=== PATIENT | male | born 1945 | race Caucasian/White ===

== ENCOUNTER 2016-11-22 09:12 | Emergency (ER) | payer MEDICARE, BC ==
[2006-04-25 10:24] VITALS: BP 122/41
[~2016-11-22] VITALS: Ht 152.4 cm; Wt 90.9 kg
[~2016-11-22 09:12] MED LIST: ADVIL200 MG PO; ALBUTEROL SULFAT3 M3 IH; ALBUTEROL0.83 MG/ML IH; ALBUTEROL1.25 MG/3 IH; ANTIVERT 25MG25 MG PO; ASPIRIN 32325 MG/TAB PO; BACTRIM DS 8001 TAB PO; BENADRYL25 M2 PO; BENICAR 20MG TA20 MG PO; BENICAR HCT 12.1 TAB PO; BENICAR/HCTZ; BETAMETHASONE D0.05% TP; BROVANA15 MCG/2 M IH; BUMEX 1MG TA1 MG/TA1 PO; BYSTOLIC5 MG PO; CEFTIN500 MG PO; CEPHALEXIN500 M1 PO; CERAVE FACIAL M89 ML TP; CIPRODEX; CLARITIN 1010 MG/TAB PO; CLEOCIN HCL300 MG; COLACE 100100 MG/CAP PO; CPAP; DIFLUCAN 100MG100 MG PO; DOCUSATE SODIU100 MG PO; DOXYCYCLINE 10100 MG PO; FEROSUL325 MG PO; FLAGYL500 MG PO; FLEXERIL 1010 MG/TAB PO; FLONASE NASAL S16 GM NS; FOLIC ACID 40400 MCG PO; GLUCOSAMINE; GLUCOSAMINE & C1 CA1 PO; GLUCOSAMINE PO; GLUCOSAMINE500 M1 PO; HYZAAR 50-12.1 UDTAB PO; IPRATROPIUM BROM3 M1 IH; LASIX 20MG TABL20 MG PO; LEVAQUIN 5500 MG/TA1; LEVAQUIN 5500 MG/TA1 PO; LEVAQUIN 750MG750 M1 PO; MEDROL 4MG DOSPA4 MG PO; MONODOX100 PO; MORPHINE SULFAT30 M5 PO; MULTIPLE VITAMI1 CAP PO; MULTIPLE VITAMI1 TAB PO; MVI; NERVE MED; NORCO 325 MG-51 TAB PO; PAXIL 10MG10 MG PO; PAXIL 20MG20 MG PO; PAXIL 30MG30 MG PO; PEPCID 20MG TAB20 MG PO; PERCOCET 325 MG1 TA2 PO; PREDNISONE1 MG PO; PREDNISONE10 MG PO; PREDNISONE20 MG PO; PRILOSEC; PRILOSEC 20MG20 MG PO; PRILOTC PO; PROAIR HFA0.09 MG/AC IH; PULMICORT R1 MG/2 ML IH; PULMICORT90 MCG/Act IH; RT ADVAIR 228 DISKUS IH; RT SPIRIVA18 MCG IH; SARNA 0.5%-0.5222 ML TP; TESSALON PERLE200 MG PO; THERAGRAN1 TA1 PO; TOPROL XL 25MG25 MG PO; TRIAMCINOLONE A15 GM TP; TYLENOL 325MG325 MG PO; TYLENOL 650MG650 M2 PO; ULTRAM 50MG TAB50 MG PO; ULTRAM50 MG PO; VITAMIN C500 MG PO; ZANTAC 300300 MG PO; ZITHROMAX 250M250 MG PO; ZITHROMAX Z PA250 MG PO; ZYRTEC 10MG10 MG PO; [UNRECOGNIZED DRUG - REMARK]
[2016-11-22 09:18] VITALS: TEMP 96.9
[2016-11-22 09:58] LABS: ARTERIAL BLD GAS O2 SATURATION 96.8 % (92-100); ARTERIAL BLD GAS TCO2 CT 26.9; ARTERIAL BLOOD GAS BASE EXCESS 1.1 (-2-2); ARTERIAL BLOOD GAS HCO3 25.7 meq/L (22-26); ARTERIAL BLOOD GAS PHT 7.42 C (7.35-7.45); ARTERIAL BLOOD GAS PO2 90.2 mmHg (80-100); ARTERIAL BLOOD GAS PO2T 90.2 (80-100); ARTERIAL BLOOD GAS pH 7.42 (7.35-7.45); OXYHEMOGLOBIN 96.4 %
[2016-11-22 09:59] LABS: ALLEN TEST YES; ALLENS TEST RESULT PASS; ATS? YES
[2016-11-22 10:29] LABS: HEMATOCRIT 39.4 % (42.0-52.0); MEAN CELL VOLUME 97 fl (80.0-100.0); MEAN CORPUSCULAR HEMOGLOBIN 32 pg (27.0-31.0); MEAN CORPUSCULAR HGB CONC 33 g/dl (33.0-37.0); PLATELET COUNT 336 K/mm3 (130-400); RED BLOOD COUNT 4.06 M/mm3 (4.20-5.60); REDCELL DISTRIBUTION WIDTH-CV 13.4 % (11.5-14.5)
[2016-11-22 10:39] LABS: ADJUSTED CALCIUM 9.5 mg/dL (8.4-10.2); ALBUMIN 3.1 gm/dL (3.5-5.0); BILIRUBIN,TOTAL 0.6 mg/dL (0.0-1.0); CALCIUM 8.8 mg/dL (8.4-10.2); CREATININE, serum 1.29 mg/dL (0.66-1.25); POTASSIUM 3.7 mmol/L (3.4-5.0); TOTAL PROTEIN 5.7 gm/dL (6.4-8.2)
[2016-11-22 10:44] LABS: ADD PATHOLOGY DIFF REVIEW NO; WHITE BLOOD COUNT 19.9 K/mm3 (4.8-10.8)
[2016-11-22 10:50] LABS: METAMYELOCYTE 1 % (0-0); MYELOCYTE 2 % (0-0); NEUTROPHILS 75 % (42.0-75.2); PLATELET ESTIMATE NORMAL (NORMAL); TOTAL CELLS COUNTED 100
[2016-11-22] MEDS ORDERED: BACTRIM DS 8001 TAB PO (12:52)
[2016-11-22 13:28] VITALS: BP 146/86; PULSE 97
== END 2016-11-22 13:36 | disposition home or self-care (01) ==
LOC: COL.ER 09:12
PROVIDERS: Family Medicine
DX: J44.0 Chronic obstructive pulmonary disease with (acute) lower respiratory infection (principal); J20.9 Acute bronchitis, unspecified; I10 Essential (primary) hypertension; K21.9 Gastro-esophageal reflux disease without esophagitis
CPT/HCPCS: J2930

== ENCOUNTER 2016-11-22 17:27 | Emergency (ER) | payer MEDICARE, BC ==
[2006-04-25 10:24] VITALS: BP 122/41
[~2016-11-22] VITALS: Ht 152.4 cm; Wt 90.9 kg
[2016-11-22 17:27] VITALS: TEMP 98.4
[2016-11-22 19:36] VITALS: BP 134/78; PULSE 94
== END 2016-11-22 19:30 | disposition home or self-care (01) ==
LOC: COL.ER 17:27
DX: S09.90XA Unspecified injury of head, initial encounter (principal); S01.21XA Laceration without foreign body of nose, initial encounter; W01.198A Fall on same level from slipping, tripping and stumbling with subsequent striking against other object, initial encounter; Y92.009 Unspecified place in unspecified non-institutional (private) residence as the place of occurrence of the external cause; I12.9 Hypertensive chronic kidney disease with stage 1 through stage 4 chronic kidney disease, or unspecified chronic kidney disease; N18.9 Chronic kidney disease, unspecified; Z87.891 Personal history of nicotine dependence; J44.0 Chronic obstructive pulmonary disease with (acute) lower respiratory infection; J20.9 Acute bronchitis, unspecified; Z99.81 Dependence on supplemental oxygen

== ENCOUNTER 2016-11-23 09:04 | Day surgery (SDC) | payer MEDICARE, BC ==
[2006-04-25 10:24] VITALS: BP 122/41
[~2016-11-23] VITALS: Ht 152.4 cm; Wt 90.5 kg
[2016-11-23 09:59] VITALS: BP 144/77; PULSE 93; TEMP 97.4
[2016-11-23 12:10] VITALS: BP 128/75; PULSE 88; TEMP 98
[2016-11-23 12:25] VITALS: BP 112/69; PULSE 91
[2016-11-23 12:40] VITALS: BP 123/62; PULSE 88
[2016-11-23 14:31] VITALS: BP 130/76; PULSE 89
== END 2016-11-23 13:20 | disposition home or self-care (01) ==
LOC: SDCO 09:04
DX: R04.2 Hemoptysis (principal); R06.02 Shortness of breath; I10 Essential (primary) hypertension; Z87.01 Personal history of pneumonia (recurrent); Z86.14 Personal history of Methicillin resistant Staphylococcus aureus infection; G47.33 Obstructive sleep apnea (adult) (pediatric); Z87.891 Personal history of nicotine dependence
CPT/HCPCS: J2704; J7030

== ENCOUNTER 2016-12-21 22:39 | Emergency (ER) | payer MEDICARE, BC ==
[2006-04-25 10:24] VITALS: BP 122/41
[~2016-12-21] VITALS: Ht 152.4 cm; Wt 90.9 kg
[2016-12-21 22:50] VITALS: TEMP 97.1
[2016-12-21 23:06] LABS: HEMATOCRIT 38.8 % (42.0-52.0); HEMOGLOBIN 12.6 g/dl (13.5-18.0); MEAN CELL VOLUME 99 fl (80.0-100.0); MEAN CORPUSCULAR HEMOGLOBIN 32 pg (27.0-31.0); MEAN CORPUSCULAR HGB CONC 33 g/dl (33.0-37.0); MEAN PLATELET VOLUME 8.9 fl (7.4-10.4); PLATELET COUNT 339 K/mm3 (130-400); RED BLOOD COUNT 3.92 M/mm3 (4.20-5.60); REDCELL DISTRIBUTION WIDTH-CV 13.8 % (11.5-14.5); WHITE BLOOD COUNT 15.9 K/mm3 (4.8-10.8)
[2016-12-21 23:09] LABS: ADD PATHOLOGY DIFF REVIEW NO
[2016-12-21 23:20] LABS: ADJUSTED CALCIUM 9.3 mg/dL (8.4-10.2); ALBUMIN 3.7 gm/dL (3.5-5.0); BILIRUBIN,TOTAL 0.6 mg/dL (0.0-1.0); CALCIUM 9.1 mg/dL (8.4-10.2); CREATININE, serum 1.31 mg/dL (0.66-1.25); POTASSIUM 4.2 mmol/L (3.4-5.0); TOTAL PROTEIN 6.6 gm/dL (6.4-8.2)
[2016-12-21 23:27] LABS: BAND 2 % (0-10); EOSINOPHIL 3 % (0-4); NEUTROPHILS 80 % (42.0-75.2); PLATELET ESTIMATE NORMAL (NORMAL); TOTAL CELLS COUNTED 100
[2016-12-21] MEDS ORDERED: ZITHROMAX Z PA250 MG PO (23:29)
[2016-12-21] MEDS ORDERED: PREDNISONE20 MG PO (23:29)
[2016-12-22 00:31] VITALS: BP 150/70; PULSE 88
== END 2016-12-22 00:32 | disposition home or self-care (01) ==
LOC: COL.ER 22:39
PROVIDERS: Family Medicine
DX: J44.1 Chronic obstructive pulmonary disease with (acute) exacerbation (principal); Z87.891 Personal history of nicotine dependence
CPT/HCPCS: J2930

== ENCOUNTER → 2017-04-05 | Outpatient (CLI) | payer MEDICARE, BC ==
[~2017-04-05] MED LIST changes: +PRILOTC
== END ==
LOC: COL.VAS 11:09
DX: R06.02 Shortness of breath (principal); R07.9 Chest pain, unspecified

== ENCOUNTER → 2017-04-28 | Outpatient (CLI) | payer MEDICARE, BC, OTHER | LOC: COL.PUL 07:46 | DX: R06.02 Shortness of breath (principal) ==

== ENCOUNTER 2017-05-07 20:32 | Observation (INO) | payer MEDICARE, BC ==
[~2017-05-07] VITALS: Ht 152.4 cm; Wt 90.4 kg
[~2017-05-07 20:32] MED LIST changes: -PRILOTC
[2017-05-07 21:04] LABS: BASO # 0.1 (0.0-0.2); BASO % 0.6 % (0.0-2.0); EOS # 0.5 (0.0-0.7); EOS % 2.9 % (0-4.0); GRAN # 12.2 (1.4-6.5); GRAN % 76.1 % (42.2-75.2); HEMATOCRIT 39.4 % (42.0-52.0); HEMOGLOBIN 13.1 g/dl (13.5-18.0); LYMPH # 1.9 (1.2-3.4); LYMPH % 11.9 % (20.0-51.0); MEAN CELL VOLUME 94 fl (80.0-100.0); MEAN CORPUSCULAR HEMOGLOBIN 31 pg (27.0-31.0); MEAN CORPUSCULAR HGB CONC 33 g/dl (33.0-37.0); MEAN PLATELET VOLUME 9.3 fl (7.4-10.4); MONO # 1.3 (0.1-0.6); MONO % 7.8 % (1.7-9.3); PLATELET COUNT 240 K/mm3 (130-400); RED BLOOD COUNT 4.18 M/mm3 (4.20-5.60); REDCELL DISTRIBUTION WIDTH-CV 13.3 % (11.5-14.5); WHITE BLOOD COUNT 16.1 K/mm3 (4.8-10.8)
[2017-05-07 21:16] LABS: ALANINE AMINOTRANSFERASE 22 U/L (21-72); ALBUMIN 3.4 gm/dL (3.5-5.0); ALKALINE PHOSPHATASE 82 U/L (50-136); ANION GAP 12 mmol/L (7-16); BILIRUBIN,TOTAL 0.5 mg/dL (0.0-1.0); BLOOD UREA NITROGEN 28 mg/dL (9-20); CALCIUM 8.5 mg/dL (8.4-10.2); CARBON DIOXIDE 28 mmol/L (22-30); CHLORIDE 101 mmol/L (98-107); CREATININE, serum 1.44 mg/dL (0.66-1.25); GLUCOSE 133 mg/dL (74-106); LIPASE 39 U/L (23-300); POTASSIUM 3.7 mmol/L (3.4-5.0); SODIUM 141 mmol/L (137-145); TOTAL PROTEIN 6.1 gm/dL (6.4-8.2)
[2017-05-07 21:28] LABS: B-TYPE NATRIURETIC PEPTIDE 127 pg/mL (0-125)
[2017-05-07 21:29] LABS: TROPONIN-I < 0.012 ng/mL (0.000-0.034)
[2017-05-08] VITALS (7 sets, daily range): BP systolic 105–136; BP diastolic 41–71; PULSE 75–96; TEMP 97.5–98.1
[2017-05-08] MEDS ORDERED: PRILOTC (00:52)
[2017-05-08 01:57] LABS: PH 5 (5-8); SQUAMOUS EPITHELIAL 0-2 /hpf; URINE APPEARANCE Clear; URINE BACTERIA None Seen /hpf; URINE BILIRUBIN Negative (NEGATIVE); URINE BLOOD Negative (NEGATIVE); URINE COLOR Yellow; URINE GLUCOSE Negative (NEGATIVE); URINE KETONE Negative (NEGATIVE); URINE RBC 0-2 /hpf; URINE UROBILINOGEN Negative (NEGATIVE); URINE WBC 0-2 /hpf
[2017-05-08 11:17] LABS: BASO # 0.1 (0.0-0.2); BASO % 0.5 % (0.0-2.0); EOS # 0.5 (0.0-0.7); EOS % 2.7 % (0-4.0); GRAN # 13.3 (1.4-6.5); GRAN % 78.6 % (42.2-75.2); HEMATOCRIT 43.5 % (42.0-52.0); HEMOGLOBIN 14.1 g/dl (13.5-18.0); LYMPH # 1.7 (1.2-3.4); LYMPH % 9.9 % (20.0-51.0); MEAN CELL VOLUME 95 fl (80.0-100.0); MEAN CORPUSCULAR HEMOGLOBIN 31 pg (27.0-31.0); MEAN CORPUSCULAR HGB CONC 32 g/dl (33.0-37.0); MEAN PLATELET VOLUME 9.4 fl (7.4-10.4); MONO # 1.3 (0.1-0.6); MONO % 7.4 % (1.7-9.3); PLATELET COUNT 221 K/mm3 (130-400); REDCELL DISTRIBUTION WIDTH-CV 13.4 % (11.5-14.5); WHITE BLOOD COUNT 16.9 K/mm3 (4.8-10.8)
== END 2017-05-08 14:39 ==
LOC: COL.ER 20:32 → MEDICAL 23:39
PROVIDERS: Emergency Medicine; Internal Medicine; Physician Assistant
DX: R07.89 Other chest pain (principal); I13.10 Hypertensive heart and chronic kidney disease without heart failure, with stage 1 through stage 4 chronic kidney disease, or unspecified chronic kidney disease; N18.2 Chronic kidney disease, stage 2 (mild); N17.9 Acute kidney failure, unspecified; I11.9 Hypertensive heart disease without heart failure; J96.10 Chronic respiratory failure, unspecified whether with hypoxia or hypercapnia; J44.9 Chronic obstructive pulmonary disease, unspecified; D72.829 Elevated white blood cell count, unspecified; Z87.891 Personal history of nicotine dependence; G47.33 Obstructive sleep apnea (adult) (pediatric); E66.9 Obesity, unspecified
CPT/HCPCS: A9502; G0378; J1644; J2785; J7030; Q9967

== ENCOUNTER → 2017-05-16 | Outpatient (CLI) | payer MEDICARE, BC ==
[~2017-05-16] MED LIST changes: +PRILOTC
[2017-05-16 12:17] LABS: BASO # 0.1 (0.0-0.2); BASO % 0.6 % (0.0-2.0); EOS # 0.8 (0.0-0.7); EOS % 4.4 % (0-4.0); GRAN # 13.1 (1.4-6.5); GRAN % 75.8 % (42.2-75.2); HEMATOCRIT 40.3 % (42.0-52.0); HEMOGLOBIN 13.2 g/dl (13.5-18.0); LYMPH # 1.9 (1.2-3.4); LYMPH % 10.9 % (20.0-51.0); MEAN CELL VOLUME 94 fl (80.0-100.0); MEAN CORPUSCULAR HEMOGLOBIN 31 pg (27.0-31.0); MEAN CORPUSCULAR HGB CONC 33 g/dl (33.0-37.0); MEAN PLATELET VOLUME 9.5 fl (7.4-10.4); MONO # 1.3 (0.1-0.6); MONO % 7.2 % (1.7-9.3); PLATELET COUNT 304 K/mm3 (130-400); RED BLOOD COUNT 4.29 M/mm3 (4.20-5.60); REDCELL DISTRIBUTION WIDTH-CV 13.1 % (11.5-14.5); WHITE BLOOD COUNT 17.3 K/mm3 (4.8-10.8)
== END ==
LOC: ZLAB.STJ 11:23
PROVIDERS: Family Medicine
DX: J44.1 Chronic obstructive pulmonary disease with (acute) exacerbation (principal)

== ENCOUNTER → 2017-11-06 | Outpatient (CLI) | payer MEDICARE, BC | LOC: ZLAB.STJ 14:18 | DX: Z51.81 Encounter for therapeutic drug level monitoring (principal) ==

== ENCOUNTER → 2017-11-15 | Outpatient (REF) ==
[~2017-11-15] MED LIST changes: +AMOXICILLIN/CLA1 TA1 PO
[2017-11-15 10:22] LABS: ADJUSTED CALCIUM 9.7 mg/dL (8.4-10.2); ALBUMIN 3.3 gm/dL (3.5-5.0); BILIRUBIN,TOTAL 0.2 mg/dL (0.0-1.0); CALCIUM 9.1 mg/dL (8.4-10.2); CREATININE, serum 1.2 mg/dL (0.66-1.25); POTASSIUM 4.7 mmol/L (3.4-5.0); TOTAL PROTEIN 5.9 gm/dL (6.4-8.2)
== END ==
LOC: ZLAB.STJ 10:00
PROVIDERS: Family Medicine
DX: J44.9 Chronic obstructive pulmonary disease, unspecified (principal)

== ENCOUNTER → 2018-01-04 | Outpatient (CLI) | payer MEDICARE, BC ==
[2018-01-04 11:09] LABS: BASO # 0.1 (0.0-0.2); BASO % 0.4 % (0.0-2.0); EOS # 0.2 (0.0-0.7); EOS % 0.7 % (0-4.0); GRAN # 17.9 (1.4-6.5); GRAN % 82.9 % (42.2-75.2); HEMATOCRIT 38.8 % (42.0-52.0); HEMOGLOBIN 13.2 g/dl (13.5-18.0); LYMPH # 1.9 (1.2-3.4); LYMPH % 8.7 % (20.0-51.0); MEAN CELL VOLUME 95 fl (80.0-100.0); MEAN CORPUSCULAR HEMOGLOBIN 32 pg (27.0-31.0); MEAN CORPUSCULAR HGB CONC 34 g/dl (33.0-37.0); MEAN PLATELET VOLUME 9.7 fl (7.4-10.4); MONO # 1.4 (0.1-0.6); MONO % 6.7 % (1.7-9.3); PLATELET COUNT 340 K/mm3 (130-400); RED BLOOD COUNT 4.08 M/mm3 (4.20-5.60); REDCELL DISTRIBUTION WIDTH-CV 13.2 % (11.5-14.5)
== END ==
LOC: ZCOL.LAB 10:55
PROVIDERS: Family Medicine
DX: Z01.89 Encounter for other specified special examinations (principal)

== ENCOUNTER → 2018-01-09 | Outpatient (CLI) | payer MEDICARE, BC ==
[2018-01-09 15:43] LABS: BASO # 0.1 (0.0-0.2); BASO % 0.4 % (0.0-2.0); EOS % 0.1 % (0-4.0); GRAN # 22.3 (1.4-6.5); GRAN % 92.2 % (42.2-75.2); HEMATOCRIT 41.7 % (42.0-52.0); HEMOGLOBIN 14.2 g/dl (13.5-18.0); LYMPH # 0.8 (1.2-3.4); LYMPH % 3.5 % (20.0-51.0); MEAN CELL VOLUME 94 fl (80.0-100.0); MEAN CORPUSCULAR HEMOGLOBIN 32 pg (27.0-31.0); MEAN CORPUSCULAR HGB CONC 34 g/dl (33.0-37.0); MEAN PLATELET VOLUME 9.3 fl (7.4-10.4); MONO # 0.7 (0.1-0.6); MONO % 3.1 % (1.7-9.3); PLATELET COUNT 393 K/mm3 (130-400); RED BLOOD COUNT 4.43 M/mm3 (4.20-5.60); REDCELL DISTRIBUTION WIDTH-CV 13.2 % (11.5-14.5)
[2018-01-09 16:22] LABS: BILIRUBIN,TOTAL 0.2 mg/dL (0.0-1.0); CALCIUM 9.3 mg/dL (8.4-10.2); CREATININE, serum 1.66 mg/dL (0.66-1.25); POTASSIUM 3.1 mmol/L (3.4-5.0); TOTAL PROTEIN 6.9 gm/dL (6.4-8.2)
== END ==
LOC: ZLAB.STJ 15:35
PROVIDERS: Family Medicine
DX: J96.11 Chronic respiratory failure with hypoxia (principal); R53.81 Other malaise

== ENCOUNTER 2018-01-15 15:01 | Emergency (ER) | payer MEDICARE, BC ==
[2006-04-25 10:24] VITALS: BP 122/41
[~2018-01-15] VITALS: Ht 157.5 cm; Wt 86.4 kg
[2018-01-15 15:03] VITALS: TEMP 97.8
[2018-01-15 15:59] LABS: BASO % 0.1 % (0.0-2.0); GRAN # 19.5 (1.4-6.5); GRAN % 88.6 % (42.2-75.2); HEMATOCRIT 46.4 % (42.0-52.0); HEMOGLOBIN 16.1 g/dl (13.5-18.0); LYMPH # 1.7 (1.2-3.4); LYMPH % 7.5 % (20.0-51.0); MEAN CELL VOLUME 92 fl (80.0-100.0); MEAN CORPUSCULAR HEMOGLOBIN 32 pg (27.0-31.0); MEAN CORPUSCULAR HGB CONC 35 g/dl (33.0-37.0); MEAN PLATELET VOLUME 9.1 fl (7.4-10.4); MONO # 0.7 (0.1-0.6); MONO % 3.3 % (1.7-9.3); PLATELET COUNT 352 K/mm3 (130-400); RED BLOOD COUNT 5.03 M/mm3 (4.20-5.60); REDCELL DISTRIBUTION WIDTH-CV 13.3 % (11.5-14.5)
[2018-01-15 16:07] LABS: ALANINE AMINOTRANSFERASE 42 U/L (21-72); ALBUMIN 3.8 gm/dL (3.5-5.0); ALKALINE PHOSPHATASE 92 U/L (50-136); ANION GAP 10 mmol/L (7-16); AST,SGOT 35 U/L (15-37); BILIRUBIN,TOTAL 0.5 mg/dL (0.0-1.0); BLOOD UREA NITROGEN 61 mg/dL (9-20); CALCIUM 9.3 mg/dL (8.4-10.2); CARBON DIOXIDE 35 mmol/L (22-30); CREATININE, serum 1.58 mg/dL (0.66-1.25); GLUCOSE 158 mg/dL (74-106); SODIUM 130 mmol/L (137-145); TOTAL PROTEIN 6.5 gm/dL (6.4-8.2)
[2018-01-15 16:09] LABS: CHLORIDE 85 mmol/L (98-107); POTASSIUM 2.8 mmol/L (3.4-5.0)
[2018-01-15 16:30] LABS: TROPONIN-I < 0.012 ng/mL (0.000-0.034)
[2018-01-15 17:13] VITALS: BP 127/78; PULSE 105
[2018-01-15] MEDS ORDERED: CLARITIN LIQUI-10 MG PO (17:16)
[2018-01-15] MEDS ORDERED: THEO-DUR 3300 MG/TAB PO (17:17)
[2018-01-15] MEDS ORDERED: ULTRAM 50MG TAB50 MG PO (17:17)
[2018-01-15] MEDS ORDERED: RT ADVAIR HFA 1112 G IH (17:18)
[2018-01-15] MEDS ORDERED: BUMEX 1MG TA1 MG/TA1 PO (17:18)
[2018-01-15] MEDS ORDERED: THERA1 TAB PO (17:19)
[2018-01-15] MEDS ORDERED: MYCOSTATIN100000 U/1 TP (17:21)
[2018-01-15] MEDS ORDERED: ASPIRIN 81M81 MG/TA2 PO (17:22)
[2018-01-15] MEDS ORDERED: HCTZ 25MG TAB25 MG PO (17:23)
[2018-01-15] MEDS ORDERED: PREDNISONE10 MG PO (17:24)
[2018-01-15] MEDS ORDERED: K-DUR 10 MEQ T10 MEQ PO (17:25)
== END 2018-01-15 17:14 | disposition home or self-care (01) ==
LOC: COL.ER 15:01
PROVIDERS: Emergency Medicine
DX: J44.9 Chronic obstructive pulmonary disease, unspecified (principal); E87.6 Hypokalemia; I12.9 Hypertensive chronic kidney disease with stage 1 through stage 4 chronic kidney disease, or unspecified chronic kidney disease; N18.9 Chronic kidney disease, unspecified; K21.9 Gastro-esophageal reflux disease without esophagitis; Z90.49 Acquired absence of other specified parts of digestive tract; Z98.890 Other specified postprocedural states; Z87.891 Personal history of nicotine dependence

== ENCOUNTER → 2018-01-23 | Outpatient (REF) ==
[~2018-01-23] MED LIST changes: +ASPIRIN 81M81 MG/TA2 PO; +CLARITIN LIQUI-10 MG PO; +HCTZ 25MG TAB25 MG PO; +K-DUR 10 MEQ T10 MEQ PO; +MYCOSTATIN100000 U/1 TP; +RT ADVAIR HFA 1112 G IH; +THEO-DUR 3300 MG/TAB PO; +THERA1 TAB PO
[2018-01-23 09:15] LABS: CALCIUM 8.7 mg/dL (8.4-10.2); CREATININE, serum 1.33 mg/dL (0.66-1.25)
[2018-01-23 09:22] LABS: POTASSIUM 2.5 mmol/L (3.4-5.0)
== END ==
LOC: ZLAB.STJ 08:59
PROVIDERS: Family Medicine
DX: N18.2 Chronic kidney disease, stage 2 (mild) (principal)

== ENCOUNTER → 2018-01-26 | Outpatient (REF) ==
[2018-01-26 15:45] LABS: CALCIUM 8.8 mg/dL (8.4-10.2); CREATININE, serum 1.3 mg/dL (0.66-1.25); POTASSIUM 3.2 mmol/L (3.4-5.0)
== END ==
LOC: ZLAB.STJ 14:12
PROVIDERS: Family Medicine
DX: N18.2 Chronic kidney disease, stage 2 (mild) (principal)

== ENCOUNTER → 2018-01-26 | Outpatient (REF) | LOC: ZLAB.STJ 09:33 | DX: Z01.89 Encounter for other specified special examinations (principal) ==

== ENCOUNTER → 2018-02-16 | Outpatient (CLI) | payer MEDICARE, BC | LOC: COL.RAD 10:31 | DX: R05 Cough (principal) ==

== ENCOUNTER 2018-06-20 22:34 | Observation (INO) | payer MEDICARE, BC ==
[~2018-06-20] VITALS: Ht 152.4 cm; Wt 90.9 kg
[2018-06-20 23:07] LABS: BASO # 0.1 (0.0-0.2); BASO % 0.4 % (0.0-2.0); EOS # 0.1 (0.0-0.7); EOS % 0.6 % (0-4.0); GRAN # 15.8 (1.4-6.5); GRAN % 79.9 % (42.2-75.2); HEMATOCRIT 39.6 % (42.0-52.0); LYMPH # 2.3 (1.2-3.4); LYMPH % 11.4 % (20.0-51.0); MEAN CELL VOLUME 91 fl (80.0-100.0); MEAN CORPUSCULAR HEMOGLOBIN 30 pg (27.0-31.0); MEAN CORPUSCULAR HGB CONC 33 g/dl (33.0-37.0); MEAN PLATELET VOLUME 9.2 fl (7.4-10.4); MONO # 1.4 (0.1-0.6); PLATELET COUNT 252 K/mm3 (130-400); RED BLOOD COUNT 4.37 M/mm3 (4.20-5.60); REDCELL DISTRIBUTION WIDTH-CV 14.1 % (11.5-14.5)
[2018-06-20 23:12] LABS: ARTERIAL BLD GAS O2 SATURATION 95.2 % (92-100); ARTERIAL BLD GAS TCO2 CT 27.6; ARTERIAL BLOOD GAS BASE EXCESS 3.2 (-2-2); ARTERIAL BLOOD GAS HCO3 26.5 meq/L (22-26); ARTERIAL BLOOD GAS PCO2 36.1 mmHg (35-45); ARTERIAL BLOOD GAS PO2 78.9 mmHg (80-100); ARTERIAL BLOOD GAS pH 7.48 (7.35-7.45)
[2018-06-20 23:18] LABS: ALANINE AMINOTRANSFERASE 25 U/L (21-72); ALBUMIN 3.4 gm/dL (3.5-5.0); ALKALINE PHOSPHATASE 74 U/L (50-136); ANION GAP 10 mmol/L (7-16); AST,SGOT 20 U/L (15-37); BILIRUBIN,TOTAL 0.1 mg/dL (0.0-1.0); BLOOD UREA NITROGEN 23 mg/dL (9-20); CALCIUM 8.7 mg/dL (8.4-10.2); CARBON DIOXIDE 30 mmol/L (22-30); CHLORIDE 100 mmol/L (98-107); CREATININE, serum 1.44 mg/dL (0.66-1.25); GLUCOSE 120 mg/dL (74-106); POTASSIUM 3.9 mmol/L (3.4-5.0); SODIUM 140 mmol/L (137-145); TOTAL PROTEIN 6.1 gm/dL (6.4-8.2)
[2018-06-20 23:22] LABS: INR 1.1 (0.8-3.0); PROTHROMBIN TIME 12.3 SECONDS (9.7-12.8)
[2018-06-20 23:24] LABS: PARTIAL THROMBOPLASTIN TIME 33.4 SECONDS (26.0-37.0)
[2018-06-20 23:29] LABS: TROPONIN-I < 0.012 ng/mL (0.000-0.034)
[2018-06-20] MEDS ORDERED: RT ADVAIR HFA 1112 G IH (23:45)
[2018-06-20] MEDS ORDERED: GLUCOSAMIN 500 (23:46)
[2018-06-21 02:11] LABS: COLLECTION METHOD CLEAN CATCH
[2018-06-21 02:19] VITALS: BP 121/61; PULSE 97; TEMP 98.3
[2018-06-21 02:19] LABS: MUCOUS Present /lpf; PH 5 (5-8); SQUAMOUS EPITHELIAL None Seen /hpf; URINE APPEARANCE Clear; URINE BACTERIA None Seen /hpf; URINE BILIRUBIN Negative (NEGATIVE); URINE BLOOD Negative (NEGATIVE); URINE COLOR Yellow; URINE GLUCOSE Negative (NEGATIVE); URINE KETONE Negative (NEGATIVE); URINE LEUKOCYTE ESTERASE Negative (NEGATIVE); URINE NITRATE Negative (NEGATIVE); URINE PROTEIN(semi-quant) Negative (NEGATIVE); URINE RBC 0-2 /hpf; URINE UROBILINOGEN Negative (NEGATIVE)
[2018-06-21 04:09] VITALS: BP 122/73; PULSE 110; TEMP 98.2
[2018-06-21] MEDS ORDERED: TYLENOL 500MG500 MG PO (04:45)
[2018-06-21] MEDS ORDERED: COLACE 100100 MG/CAP PO ×2 (04:47→04:48)
[2018-06-21] MEDS ORDERED: [UNRECOGNIZED DRUG - OTHER] NAS (04:52)
[2018-06-21 07:34] VITALS: BP 136/65; PULSE 99; TEMP 98.4
[2018-06-21] MEDS ORDERED: ZITHROMAX500 M2 PO (09:09)
[2018-06-21 09:43] VITALS: BP 136/65; PULSE 99; TEMP 98.4
== END 2018-06-21 12:37 | disposition home or self-care (01) ==
LOC: COL.ER 22:34 → ICU 06-21 00:47 → MEDICAL 06-21 01:27
PROVIDERS: Emergency Medicine
DX: J44.1 Chronic obstructive pulmonary disease with (acute) exacerbation (principal); K21.9 Gastro-esophageal reflux disease without esophagitis; I10 Essential (primary) hypertension; N18.9 Chronic kidney disease, unspecified; D72.829 Elevated white blood cell count, unspecified; R00.0 Tachycardia, unspecified; Z99.81 Dependence on supplemental oxygen
CPT/HCPCS: G0378; J2930; Q9967

== ENCOUNTER → 2018-09-19 | Outpatient (CLI) | payer MEDICARE, BC ==
[~2018-09-19] MED LIST changes: +GLUCOSAMIN 500; +TYLENOL 500MG500 MG PO; +ZITHROMAX500 M2 PO; +[UNRECOGNIZED DRUG - OTHER] NAS
[2018-09-19 15:31] LABS: CALCIUM 8.5 mg/dL (8.4-10.2); CREATININE, serum 1.33 mg/dL (0.66-1.25); POTASSIUM 4.3 mmol/L (3.4-5.0); THEOPHYLLINE 9.8 ug/mL (10.0-20.0)
== END ==
LOC: ZLAB.STJ 15:07
PROVIDERS: Family Medicine
DX: J44.9 Chronic obstructive pulmonary disease, unspecified (principal)

== ENCOUNTER → 2018-11-06 | Outpatient (CLI) | payer MEDICARE, BC ==
[2018-11-06 16:51] LABS: CALCIUM 8.8 mg/dL (8.4-10.2); CREATININE, serum 1.39 mg/dL (0.66-1.25); POTASSIUM 4.8 mmol/L (3.4-5.0)
[2018-11-06 18:48] LABS: THEOPHYLLINE 8.1 ug/mL (10.0-20.0)
== END ==
LOC: ZLAB.STJ 16:28 → ZCOL.LAB 16:28
PROVIDERS: Family Medicine
DX: I10 Essential (primary) hypertension (principal); J96.11 Chronic respiratory failure with hypoxia

== ENCOUNTER → 2019-02-26 | Outpatient (CLI) | payer MEDICARE, BC | LOC: ZCOL.LAB 19:19 → ZLAB.STJ 19:19 | DX: E61.2 Magnesium deficiency (principal) ==

== ENCOUNTER → 2019-03-06 | Outpatient (CLI) | payer MEDICARE, BC ==
[2019-03-06 13:31] LABS: COLLECTION METHOD CLEAN CATCH
[2019-03-06 13:44] LABS: BASO # 0.1 (0.0-0.2); BASO % 0.4 % (0.0-2.0); EOS # 0.3 (0.0-0.7); GRAN # 11.4 (1.4-6.5); GRAN % 80.1 % (42.2-75.2); HEMATOCRIT 41.5 % (42.0-52.0); HEMOGLOBIN 13.3 g/dl (13.5-18.0); LYMPH # 1.4 (1.2-3.4); LYMPH % 9.5 % (20.0-51.0); MEAN CELL VOLUME 94 fl (80.0-100.0); MEAN CORPUSCULAR HEMOGLOBIN 30 pg (27.0-31.0); MEAN CORPUSCULAR HGB CONC 32 g/dl (33.0-37.0); MEAN PLATELET VOLUME 9.8 fl (7.4-10.4); MONO # 1.1 (0.1-0.6); MONO % 7.4 % (1.7-9.3); PLATELET COUNT 253 K/mm3 (130-400); RED BLOOD COUNT 4.43 M/mm3 (4.20-5.60); REDCELL DISTRIBUTION WIDTH-CV 13.2 % (11.5-14.5)
[2019-03-06 13:59] LABS: ALANINE AMINOTRANSFERASE < 6 U/L (21-72); ALBUMIN 3.5 gm/dL (3.5-5.0); ALKALINE PHOSPHATASE 86 U/L (50-136); ANION GAP 9 mmol/L (7-16); AST,SGOT 46 U/L (15-37); BILIRUBIN,TOTAL 0.6 mg/dL (0.0-1.0); BLOOD UREA NITROGEN 27 mg/dL (9-20); CALCIUM 8.9 mg/dL (8.4-10.2); CARBON DIOXIDE 26 mmol/L (22-30); CHLORIDE 104 mmol/L (98-107); CHOLESTEROL 158 mg/dL (120-200); CHOLESTEROL RISK RATIO 3.5; CREATININE, serum 1.39 (0.66-1.25); GLUCOSE 96 mg/dL (74-106); HDL CHOLESTEROL 45 mg/dL; LDL CHOLESTEROL 96 mg/dL; POTASSIUM 4.6 mmol/L (3.4-5.0); SODIUM 138 mmol/L (137-145); TOTAL PROTEIN 6.3 gm/dL (6.4-8.2); TRIGLYCERIDE 84 mg/dL
[2019-03-06 14:05] LABS: MUCOUS Present /lpf; PH 5 (5-8); SQUAMOUS EPITHELIAL None Seen /hpf; URINE APPEARANCE Clear; URINE BACTERIA None Seen /hpf; URINE BILIRUBIN Negative (NEGATIVE); URINE BLOOD Negative (NEGATIVE); URINE COLOR Yellow; URINE GLUCOSE Negative (NEGATIVE); URINE KETONE Negative (NEGATIVE); URINE LEUKOCYTE ESTERASE Negative (NEGATIVE); URINE NITRATE Negative (NEGATIVE); URINE PROTEIN(semi-quant) Negative (NEGATIVE); URINE RBC 0-2 /hpf; URINE UROBILINOGEN Negative (NEGATIVE)
== END ==
LOC: ZLAB.STJ 09:41
PROVIDERS: Family Medicine
DX: Z01.89 Encounter for other specified special examinations (principal)

== ENCOUNTER 2019-05-18 16:07 | Inpatient (IN) | payer MEDICARE, BC ==
[~2019-05-18] VITALS: Ht 157.5 cm; Wt 91.5 kg
[~2019-05-18 16:07] MED LIST changes: -PRILOTC
[2019-05-18 17:26] LABS: HEMATOCRIT 42.7 % (42.0-52.0); HEMOGLOBIN 13.7 g/dl (13.5-18.0); MEAN CELL VOLUME 93 fl (80.0-100.0); MEAN CORPUSCULAR HEMOGLOBIN 30 pg (27.0-31.0); MEAN CORPUSCULAR HGB CONC 32 g/dl (33.0-37.0); MEAN PLATELET VOLUME 9.1 fl (7.4-10.4); PLATELET COUNT 263 K/mm3 (130-400); RED BLOOD COUNT 4.61 M/mm3 (4.20-5.60); REDCELL DISTRIBUTION WIDTH-CV 13.6 % (11.5-14.5)
[2019-05-18 17:36] LABS: ALBUMIN 3.8 gm/dL (3.5-5.0); BILIRUBIN,TOTAL 0.4 mg/dL (0.0-1.0); CALCIUM 9.2 mg/dL (8.4-10.2); CREATININE, serum 1.53 (0.66-1.25); POTASSIUM 3.9 mmol/L (3.4-5.0); TOTAL PROTEIN 6.7 gm/dL (6.4-8.2)
[2019-05-18 17:55] LABS: EOSINOPHIL 1 % (0-4); LYMPHOCYTE 4 % (20.0-51.0); NEUTROPHILS 84 % (42.0-75.2)
[2019-05-18 17:56] LABS: PLATELET ESTIMATE NORMAL (NORMAL)
[2019-05-18 20:01] VITALS: BP 93/60; PULSE 116; TEMP 98.1
--- NOTE | 2019-05-18 21:25 | NUR ---
PT A/O X4, BUT IS HARD OF HEARING. PT DENIES PAIN OR DISCOMFORT AT THIS TIME. PT HAS NON-PRODUCTIVE COUGH, WHICH HE COUGHS CONSTANTLY. 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 PT FROM [facility] AND DOES NOT KNOW WHAT MEDICATIONS HE TAKES. PT USES WALKER TO AMBULATE WHICH HE LEFT HIS AT THE [facility]. CERAMIC CAPACITOR PROCESSOR BROUGHT IN HOSPITAL'S WALKER FOR PT TO USE. PT HAS ONE HEARING AID IN HIS LEFT EAR BUT NONE IN HIS RIGHT EAR. NO FURTHER NEEDS AT THIS TIME, CALL LIGHT WITHIN REACH.
[2019-05-18] MEDS ORDERED: ALBUTEROL0.83 MG/ML IH (22:30)
[2019-05-18] MEDS ORDERED: DEBROX OT (22:37)
[2019-05-18] MEDS ORDERED: ROBITUSSIN100 MG/5 M PO (22:40)
[2019-05-18] MEDS ORDERED: CETAPHIL MOIST240 ML TP (22:54)
[2019-05-18] MEDS ORDERED: TIOTROPIUM BROMIDE PO (22:57)
--- NOTE | 2019-05-18 23:00 | NUR ---
PATIENT REFUSED SVN TREATMENT EARLIER WANTED TO WAIT, HAD SVN TREATMENT @ 1757 IN THE ER. PATIENT ALSO REFUSED HOSPITAL CPAP AND WILL 3 LPM NC, HE WAS TO BRING HIS FROM HOME.
[2019-05-18] MEDS ORDERED: [UNRECOGNIZED DRUG - OTHER] NAS (23:01)
[2019-05-18] MEDS ORDERED: MUCINEX 60600 MG/TA1 PO (23:13)
[2019-05-18] MEDS ORDERED: FLOMAX 0.40.4 MG/CAP PO (23:23)
[2019-05-18 23:41] VITALS: BP 102/71; PULSE 108; TEMP 97.4
[2019-05-19 03:52] VITALS: BP 125/86; PULSE 73; TEMP 97.5
[2019-05-19 07:14] LABS: BASO % 0.1 % (0.0-2.0); GRAN # 18.1 (1.4-6.5); GRAN % 95.5 % (42.2-75.2); HEMATOCRIT 39.5 % (42.0-52.0); HEMOGLOBIN 12.8 g/dl (13.5-18.0); LYMPH # 0.6 (1.2-3.4); LYMPH % 3.1 % (20.0-51.0); MEAN CELL VOLUME 92 fl (80.0-100.0); MEAN CORPUSCULAR HEMOGLOBIN 30 pg (27.0-31.0); MEAN CORPUSCULAR HGB CONC 32 g/dl (33.0-37.0); MEAN PLATELET VOLUME 9.4 fl (7.4-10.4); MONO # 0.1 (0.1-0.6); MONO % 0.6 % (1.7-9.3); PLATELET COUNT 239 K/mm3 (130-400); RED BLOOD COUNT 4.28 M/mm3 (4.20-5.60); REDCELL DISTRIBUTION WIDTH-CV 13.6 % (11.5-14.5)
[2019-05-19 07:20] LABS: CALCIUM 8.6 mg/dL (8.4-10.2); CREATININE, serum 1.42 (0.66-1.25); POTASSIUM 3.8 mmol/L (3.4-5.0)
--- NOTE | 2019-05-19 07:22 | NUR ---
PT WAS UP MOST OF THE NIGHT. PT DID NOT GET MUCH SLEEP EVEN THOUGH HE WAS GIVEN A CPAP TO USE DURING THE NIGHT. PT GOT UP FREQUENTLY TO THE BATHROOM AND WOULD HAVE A SMALL BOWEL MOVEMENT WHEN HE WENT TO THE BATHROOM ALONG WITH URINE. PT'S IV IN RIGHT FOREARM INFILTRATED, REMOVED IV, CATHETER INTACT, APPLIED PRESSURE TILL BLEEDING STOPPED, AND APPLIED A PROTECTIVE DRSG OVER SITE. STARTED NEW IV, 20G, IN RIGHT AC, X1 ATTEMPT, WITH NO DIFFICULTIES AND PT TOLERATED WELL. CALL LIGHT WITHIN REACH. PT ONLY HAS ONE HEARING AID AND HE STILL HAS A HARD TIME HEARING. HAD TO RAISE MY VOICE SEVERAL TIMES FOR THE PT TO HEAR AND UNDERSTAND. PT AT TIMES WOULD MUMBLE HIS WORKS AND NOT ABLE TO UNDERSTAND WHAT HE WAS SAYING. ALSO, WHEN PT WOULD USE CALL LIGHT HE WOULD NOT ANSWER BACK WHEN ASKED HOW CAN WE HELP YOU. WOULD GO DIRECTLY TO ROOM TO FINDOUT WHAT HIS NEEDS WERE.
[2019-05-19 08:19] VITALS: BP 132/87; PULSE 114
--- NOTE | 2019-05-19 11:12 | NUR ---
Patient sitting in bed upon assessment. Denies having any pain at this time. First sputum sample sent to lab during the night contained only saliva so patient will work on providing a new sample. Left forearm appears puffy from IV that infiltrated during previous shift. Patient states it is mildly tender to the touch but otherwise not painful. Patient states he is hopeful to go home today. Denies any further concerns. Call light in reach.
[2019-05-19 11:26] VITALS: BP 129/73; PULSE 107; TEMP 97.7
[2019-05-19 15:52] VITALS: BP 133/66; PULSE 107; TEMP 97.7
[2019-05-19 19:49] VITALS: BP 147/74; PULSE 112; TEMP 97.8
--- NOTE | 2019-05-19 20:00 | NUR ---
PT RESTING IN BED WITH HOB ELEVATED TO 45 DEGREE ANGLE. PT DENIES PAIN OR DISCOMFORT. PT DOES CONTINUE TO COUGH OCCASSIONALLY. PT HAS NO NEEDS AT THIS TIME, CALL LIGHT WITHIN REACH.
[2019-05-19 23:35] VITALS: BP 127/69; PULSE 102; TEMP 97.6
--- NOTE | 2019-05-20 00:29 | NUR ---
PT HAS BEEN UP SEVERAL TIMES TO THE BATHROOM X1 ASSIST AND USES A WALKER, GAIT STEADY. PT REQUESTED CPAP, CALLED RT ASSIST PT WITH SETTING IT UP FOR HIM. PT HAS NO FURTHER NEEDS, CALL LIGHT WITHIN REACH.
[2019-05-20 04:00] VITALS: BP 129/66; PULSE 98; TEMP 97.4
[2019-05-20 07:16] VITALS: BP 127/78; PULSE 96; TEMP 98.3
[2019-05-20 08:05] LABS: HEMATOCRIT 42.3 % (42.0-52.0); HEMOGLOBIN 13.6 g/dl (13.5-18.0); MEAN CELL VOLUME 94 fl (80.0-100.0); MEAN CORPUSCULAR HEMOGLOBIN 30 pg (27.0-31.0); MEAN CORPUSCULAR HGB CONC 32 g/dl (33.0-37.0); MEAN PLATELET VOLUME 9.7 fl (7.4-10.4); PLATELET COUNT 294 K/mm3 (130-400); RED BLOOD COUNT 4.51 M/mm3 (4.20-5.60); REDCELL DISTRIBUTION WIDTH-CV 13.9 % (11.5-14.5)
[2019-05-20 08:20] LABS: CALCIUM 9.2 mg/dL (8.4-10.2); CREATININE, serum 1.41 (0.66-1.25)
[2019-05-20 09:13] LABS: LYMPHOCYTE 2 % (20.0-51.0); NEUTROPHILS 98 % (42.0-75.2); PLATELET ESTIMATE NORMAL (NORMAL)
[2019-05-20 11:44] VITALS: BP 132/72; PULSE 91
--- NOTE | 2019-05-20 14:44 | NUR ---
DIPTI met with the patient to discuss discharge plan. The patient resides at [facility] in long-term care. The patient reports that he would like to return back there upon discharge. DIPTI presented and explained the patient choice form. The patient chose to return back to [facility]. Patient choice form signed by the patient and he requested SW place a copy in his discharge packet. The patient's PCP is Dr. Asif Robles and his DPOA-HC is in EMR. His sister, Britta, is his DPOA-HC. DIPTI contacted and faxed updates to Josh at [facility]. DIPTI to continue to follow.
[2019-05-20 15:41] VITALS: BP 145/85; PULSE 116; TEMP 98.3
--- NOTE | 2019-05-20 19:10 | NUR ---
Patient is sitting up in recliner eating supper. Denies having any needs at this time. Call light and personal items are within reach.
--- NOTE | 2019-05-20 19:42 | NUR ---
PT IN BED WITH HOB ELEVATED TO 30 DEGREE ANGLE. PT DENIES PAIN OR DISCOMFORT AND NO SOB. PT HAS O2 ON AT 3L/NC. PT HAS NO FURTHER NEEDS CALL LIGHT WITHIN REACH.
[2019-05-20 19:50] VITALS: BP 148/65; PULSE 106; TEMP 97.6
--- NOTE | 2019-05-20 21:48 | NUR ---
PT DOES NOT HAVE HEARING AID IN BECAUSE HE DOES NOT HAVE A BATTERY FOR IT.
--- NOTE | 2019-05-20 23:12 | NUR ---
PT SLEEPING AT THIS TIME WITH CPAP ON WITH NO S/S OF PAIN OR DISCOMFORT NOTED.
[2019-05-21] VITALS (7 sets, daily range): BP systolic 120–140; BP diastolic 66–81; PULSE 88–129; TEMP 97.5–98.6
--- NOTE | 2019-05-21 01:49 | NUR ---
PT UP THROUGHOUT NIGHT. PT SLEEPS FOR VERY SHORT PERIODS OF TIME. PT HAD NOT SLEPT MUCH DURING THE DAY. PT DENIES PAIN OR DISCOMFORT AND CALL LIGHT WITHIN REACH.
--- NOTE | 2019-05-21 03:52 | NUR ---
PT'S O2 WAS AT 85% ON 2.5L/NC. INCREASED O2 TO 5L/NC AND O2 WAS GOING BETWEEN 86% TO 90%. CALL SHADY JEFFERSON AND ADVISED OF PT'S O2 SATS. SHADY JEFFERSON GAVE ORDERS TO HAVE RT GIVE A PRN BREATHING TX AND TO PUT HIS CPAP ON. RT WAS CALLED IMMEDIATELY AND ADVISED OF SHADY'S CREATIVE SERVICES COORDINATOR ORDERS. PT RESTING IN RECLINER WITH CPAP ON.
--- NOTE | 2019-05-21 04:00 | NUR ---
PT IN RECLINER WITH CPAP ON AT 3.5L. RECHECKED O2 SATS AND O2 AT 85%. INCREASED O2 TO 5L/CPAP AND O2 WENT UP TO 87%. CALLED SHADY JEFFERSON AND ADVISED THAT PT IS ON CPAP AND INCREASED O2 TO 5L, BUT STILL O2 IN THE 80s. SHADY JEFFERSON REQUESTED RT'S NUMBER. GAVE RT'S NUMBER TO SHADY JEFFERSON. NO FURTHER ORDERS GIVEN.
--- NOTE | 2019-05-21 05:34 | NUR ---
SHADY JEFFERSON CALLED IN REFERENCE TO PT'S C/O CPAP. PT DOES NOT WANT TO WEAR THE CPAP, BECAUSE HE IS WORRIED ABOUT EATING BREAKFAST. SHADY JEFFERSON ADVISED THAT WE CAN CHECK HIM BEFORE BREAKFAST, BUT HE NEEDS TO WEAR THE CPAP BECAUSE HE WAS DESATTING. PT WAS EXPLAINED THAT HE NEEDS TO WEAR IT BECAUSE HE WAS DESATTING AND OXYGEN LEVELS TOO LOW. PT CALLED ABOUT TAKING CPAP OFF 3 TIMES. WENT IN THERE AGAIN AND PT ADVISED THAT HE UNDERSTOOD AND SAID, "OKAY." CALL LIGHT WITHIN REACH.
[2019-05-21 07:47] LABS: BASO % 0.1 % (0.0-2.0); GRAN # 17.4 (1.4-6.5); GRAN % 86.2 % (42.2-75.2); HEMATOCRIT 42.6 % (42.0-52.0); HEMOGLOBIN 13.5 g/dl (13.5-18.0); LYMPH # 1.4 (1.2-3.4); LYMPH % 6.8 % (20.0-51.0); MEAN CELL VOLUME 94 fl (80.0-100.0); MEAN CORPUSCULAR HEMOGLOBIN 30 pg (27.0-31.0); MEAN CORPUSCULAR HGB CONC 32 g/dl (33.0-37.0); MEAN PLATELET VOLUME 9.4 fl (7.4-10.4); MONO # 1.2 (0.1-0.6); MONO % 5.9 % (1.7-9.3); PLATELET COUNT 268 K/mm3 (130-400); RED BLOOD COUNT 4.53 M/mm3 (4.20-5.60); REDCELL DISTRIBUTION WIDTH-CV 14.1 % (11.5-14.5)
--- NOTE | 2019-05-21 08:00 | NUR ---
PATIENT IS ORIENTED TO PERSON & PLACE BUT DOES DISPLAY OCCATIONAL FORGETFULNESS. PATIENT CALLS OPERATOR RECEPTIONIST LIGHT APPROX EVERY 15-20 MIN ALL THROUGHOUT THE DAY AND DOESN'T RESPOND TO STOPER WHEN ASKED WHAT HE NEEDS. PATIENT IS [place]. DITCHER REPORTS PATIENT REQUIRING BI-PAP LAST NOC FOR SATS IN 80'S. PATIENT CURRENTLY ON 5L PER NC TO KEEP SATS IN MID 90'S. PATIENT IS A MOUTH BREATHER. NOTED SOB WITH ACTIVITY. PATIENT ASSISTED TO BATHROOM AND BEDSIDE CHAIR WITH ONE ASSIST. A&P LUNG MOULTON ARE DEMINISHED WITH FC IN BASES. PATIENT ON CONTACT FOR POSITIVE RHINO/ENTERO VIRUS. PATIENT HAS OCCATIONAL PRODUCTIVE COUGH. THICK, WHITE ORAL SECRETION NOTED. RT TREATMENTS ORDERED. TELE INPLACE. HEAD TO TOE ASSESSMENT WNL. AM MEDS GIVEN. NO OTHER NEEDS AT THIS TIME. CALL LIGHT IN REACH.
[2019-05-21 08:04] LABS: CREATININE, serum 1.45 (0.66-1.25); POTASSIUM 3.5 mmol/L (3.4-5.0)
--- NOTE | 2019-05-21 10:19 | NUR ---
DIPTI contacted and faxed updates to [facility]. SW to continue to follow.
--- NOTE | 2019-05-21 19:54 | NUR ---
RECEIVED VERBAL ORDERS FROM SHADY JEFFERSON FOR MELATONIN 6MG PO AT HS.
--- NOTE | 2019-05-21 20:24 | NUR ---
PT SITTING IN RECLINER, DENIES PAIN OR DISCOMFORT AND IS WATCHING TV. PT STILL DOES NOT HAVE BATTARY FOR HEARING AND STILL HAVE TO TALK VERY LOUDLY FOR HIM. NO NEEDS AT THIS TIME. CALL LIGHT WITHIN REACH.
--- NOTE | 2019-05-22 00:05 | NUR ---
RECEIVED VERBAL ORDER FROM SHADY JEFFERSON FOR BENADRYL 50 MG PO FOR SLEEP.
--- NOTE | 2019-05-22 03:26 | NUR ---
PT WAS EARLIER ASSISTED TO THE BEDSIDE COMMODE BY REDD. PT HAD URINATED OVER EVERYTHING INCLUDING HIS BOXER SHORTS AND SHORTS THAT HE NORMALLY WEARS. PT WANTED TO PUT BACK ON, BUT THEY WERE DRENCHED IN URINE. DENTISTRY TEACHER ADVISED THAT THEY WERE WET AND SHE COULD NOT PUT THEM BACK ON HIM. PT WANTED THEM ON ANYWAY. PT WAS ADVISED THAT IT WAS NOT CLEAN OR HEALTHY AND PT HAD ON A PULLUP. PT CALLED SEVERAL TIMES WANTING TO PUT BACK HIS SHORTS AND BOXERS ON. PT ADVISED THE SAME THING SEVERAL TIMES. PT WAS ADVISED THAT BEFORE HE LEAVES [facility]IA [facility] WHERE HE IS FROM CAN BRING HIM SOME CLEAN CLOTHES TO LEAVE IN. PT ADVISED THAT HE DID NOT LIKE IT, BUT HE WILL GO ALONG WITH IT. PT IN BED WITH CPAP ON, AND CALL LIGHT WITHIN REACH.
[2019-05-22 04:25] VITALS: BP 148/82; PULSE 100; TEMP 98
[2019-05-22 06:18] LABS: BASO % 0.1 % (0.0-2.0); GRAN # 12.5 (1.4-6.5); GRAN % 81.9 % (42.2-75.2); HEMATOCRIT 40.9 % (42.0-52.0); HEMOGLOBIN 13.2 g/dl (13.5-18.0); LYMPH # 1.5 (1.2-3.4); LYMPH % 10.1 % (20.0-51.0); MEAN CELL VOLUME 93 fl (80.0-100.0); MEAN CORPUSCULAR HEMOGLOBIN 30 pg (27.0-31.0); MEAN CORPUSCULAR HGB CONC 32 g/dl (33.0-37.0); MEAN PLATELET VOLUME 9.6 fl (7.4-10.4); MONO # 1.1 (0.1-0.6); MONO % 6.9 % (1.7-9.3); PLATELET COUNT 247 K/mm3 (130-400); RED BLOOD COUNT 4.38 M/mm3 (4.20-5.60); REDCELL DISTRIBUTION WIDTH-CV 13.8 % (11.5-14.5)
[2019-05-22 06:35] LABS: CALCIUM 8.8 mg/dL (8.4-10.2); CREATININE, serum 1.43 (0.66-1.25); POTASSIUM 3.7 mmol/L (3.4-5.0)
[2019-05-22 09:49] VITALS: BP 135/81; PULSE 115; TEMP 98.1
--- NOTE | 2019-05-22 10:41 | NUR ---
Pt awake and alert upon entry, sitting up in recliner, audible wheezes noticable, shift assessment complete, left Pt call light in reach.
[2019-05-22 10:54] VITALS: BP 104/59; PULSE 101; TEMP 98.3
[2019-05-22] MEDS ORDERED: XOPENEX 1.1.25 MG/3 IH (14:49)
[2019-05-22] MEDS ORDERED: PERFOROMIS20 MCG/2 M IH (14:50)
[2019-05-22] MEDS ORDERED: IPRATROPIUM BROM3 M1 IH (14:50)
[2019-05-22] MEDS ORDERED: PULMICORT0.5 MG/2 M IH (14:51)
[2019-05-22] MEDS ORDERED: PREDNISONE10 MG PO (14:53)
[2019-05-22] MEDS ORDERED: DOXYCYCLINE HY100 MG PO (14:55)
[2019-05-22] MEDS ORDERED: TOPROL XL 50MG50 MG PO (15:16)
[2019-05-22 15:21] VITALS: BP 104/59; PULSE 101; TEMP 98.3
--- NOTE | 2019-05-22 15:57 | NUR ---
The patient is to discharge today, 05/22, back to [facility] for a skilled stay. Transportation was set for around [id number], via [facility]. DIPTI informed the patient and patient's nurse. They were both in agreeance. DIPTI also contacted the patient's sister, Carolin, and informed her of the patient discharging. The patient's sister was in agreeance. DIPTI presented and explained the IM form to the patient. The patient verbalized understanding, signed, and he was provided a copy. No additional needs at this time.
--- NOTE | 2019-05-22 16:29 | NUR ---
Pt discharged to [facility], Transported Via their transportation department.
== END 2019-05-22 16:28 | disposition home or self-care (01) | DRG 202 ==
LOC: COL.ER 16:07 → MEDICAL 18:27
PROVIDERS: Emergency Medicine; Nurse Practitioner; Physician Assistant; ADMIT Hospitalist
PROC: 5A09357 Assistance with Respiratory Ventilation, Less than 24 Consecutive Hours, Continuous Positive Airway Pressure (ICD-10-PCS; principal; 2019-05-21)
DX: J20.6 Acute bronchitis due to rhinovirus (principal); J44.1 Chronic obstructive pulmonary disease with (acute) exacerbation; J96.11 Chronic respiratory failure with hypoxia; Z99.81 Dependence on supplemental oxygen; K21.9 Gastro-esophageal reflux disease without esophagitis; I12.9 Hypertensive chronic kidney disease with stage 1 through stage 4 chronic kidney disease, or unspecified chronic kidney disease; N18.2 Chronic kidney disease, stage 2 (mild); G47.33 Obstructive sleep apnea (adult) (pediatric); Z87.891 Personal history of nicotine dependence; Z88.3 Allergy status to other anti-infective agents; Z88.5 Allergy status to narcotic agent; Z88.8 Allergy status to other drugs, medicaments and biological substances; H10.89 Other conjunctivitis; R00.0 Tachycardia, unspecified
CPT/HCPCS: 99222-AI; 99232-AI; 99239; G0378; J1100; J1644; J2930; J7030; J7512

== ENCOUNTER → 2019-05-27 | Outpatient (CLI) | payer MEDICARE, BC ==
[~2019-05-27] MED LIST changes: +CETAPHIL MOIST240 ML TP; +DEBROX OT; +DOXYCYCLINE HY100 MG PO; +FLOMAX 0.40.4 MG/CAP PO; +MUCINEX 60600 MG/TA1 PO; +PERFOROMIS20 MCG/2 M IH; +PULMICORT0.5 MG/2 M IH; +ROBITUSSIN100 MG/5 M PO; +TIOTROPIUM BROMIDE PO; +TOPROL XL 50MG50 MG PO; +XOPENEX 1.1.25 MG/3 IH; +[UNRECOGNIZED DRUG - OTHER] NAS
[2019-05-27 13:31] LABS: CALCIUM 8.4 mg/dL (8.4-10.2); CREATININE, serum 1.28 (0.66-1.25)
[2019-05-27 17:21] LABS: BASO % 0.2 % (0.0-2.0); EOS % 0.1 % (0-4.0); GRAN # 13.5 (1.4-6.5); GRAN % 76.9 % (42.2-75.2); HEMATOCRIT 41.5 % (42.0-52.0); HEMOGLOBIN 13.2 g/dl (13.5-18.0); LYMPH # 2.7 (1.2-3.4); LYMPH % 15.6 % (20.0-51.0); MEAN CELL VOLUME 94 fl (80.0-100.0); MEAN CORPUSCULAR HEMOGLOBIN 30 pg (27.0-31.0); MEAN CORPUSCULAR HGB CONC 32 g/dl (33.0-37.0); MEAN PLATELET VOLUME 10.4 fl (7.4-10.4); MONO % 5.6 % (1.7-9.3); PLATELET COUNT 241 K/mm3 (130-400); RED BLOOD COUNT 4.42 M/mm3 (4.20-5.60); REDCELL DISTRIBUTION WIDTH-CV 13.9 % (11.5-14.5)
== END ==
LOC: ZLAB.STJ 10:57
PROVIDERS: Family Medicine
DX: I10 Essential (primary) hypertension (principal)

== ENCOUNTER 2019-10-02 22:05 | Emergency (ER) | payer MEDICARE, BC ==
[2006-04-25 10:24] VITALS: BP 122/41
[~2019-10-02] VITALS: Ht 157.5 cm; Wt 81.8 kg
[2019-10-02 22:08] VITALS: TEMP 97.7
[2019-10-02 23:03] LABS: COLLECTION METHOD CLEAN CATCH
[2019-10-02 23:16] LABS: MUCOUS Present /lpf; SQUAMOUS EPITHELIAL 0-2 /hpf; URINE APPEARANCE Hazy; URINE BACTERIA None Seen /hpf; URINE COLOR Yellow; URINE RBC 0-2 /hpf
[2019-10-02 23:17] LABS: BASO # 0.1 (0.0-0.2); BASO % 0.3 % (0.0-2.0); GRAN # 19.4 (1.4-6.5); GRAN % 84.7 % (42.2-75.2); HEMATOCRIT 46.6 % (42.0-52.0); HEMOGLOBIN 15.6 g/dl (13.5-18.0); LYMPH # 1.8 (1.2-3.4); MEAN CELL VOLUME 91 fl (80.0-100.0); MEAN CORPUSCULAR HEMOGLOBIN 30 pg (27.0-31.0); MEAN CORPUSCULAR HGB CONC 34 g/dl (33.0-37.0); MEAN PLATELET VOLUME 9.6 fl (7.4-10.4); MONO # 1.4 (0.1-0.6); MONO % 6.2 % (1.7-9.3); PLATELET COUNT 295 K/mm3 (130-400); RED BLOOD COUNT 5.14 M/mm3 (4.20-5.60); REDCELL DISTRIBUTION WIDTH-CV 13.3 % (11.5-14.5)
[2019-10-02 23:22] LABS: PH 5 (5-8); URINE GLUCOSE Negative (NEGATIVE); URINE KETONE Trace (NEGATIVE); URINE PROTEIN(semi-quant) 1+ (NEGATIVE)
[2019-10-02 23:23] LABS: URINE BILIRUBIN Negative (NEGATIVE); URINE BLOOD Negative (NEGATIVE); URINE LEUKOCYTE ESTERASE Negative (NEGATIVE); URINE NITRATE Negative (NEGATIVE); URINE UROBILINOGEN Negative (NEGATIVE)
[2019-10-02 23:27] LABS: INR 1.3 (0.8-3.0); PROTHROMBIN TIME 14.8 SECONDS (9.7-12.8)
[2019-10-02] MEDS ORDERED: PAXIL 10MG10 MG PO (23:30)
[2019-10-02 23:31] LABS: BLOOD UREA NITROGEN 35 mg/dL (9-20); C-REACTIVE PROTEIN 1.2 mg/dL (0.0-0.9); CREATININE, serum 1.15 (0.66-1.25); GLUCOSE 124 mg/dL (74-106); LIPASE 339 U/L (23-300)
[2019-10-02 23:50] LABS: TROPONIN-I < 0.012 ng/mL (0.000-0.035)
[2019-10-02 23:58] LABS: ALANINE AMINOTRANSFERASE 17 U/L (21-72); ALBUMIN 3.4 gm/dL (3.5-5.0); ALKALINE PHOSPHATASE 94 U/L (50-136); ANION GAP 12 mmol/L (7-16); AST,SGOT 24 U/L (15-37); BILIRUBIN,TOTAL 0.5 mg/dL (0.0-1.0); CALCIUM 9.3 mg/dL (8.4-10.2); CARBON DIOXIDE 24 mmol/L (22-30); CHLORIDE 103 mmol/L (98-107); POTASSIUM 3.9 mmol/L (3.4-5.0); SODIUM 138 mmol/L (137-145); TOTAL PROTEIN 5.7 gm/dL (6.4-8.2)
[2019-10-03 03:05] VITALS: BP 139/76; PULSE 78
== END 2019-10-03 03:05 | disposition home or self-care (01) ==
LOC: COL.ER 22:05
PROVIDERS: Emergency Medicine
DX: R07.89 Other chest pain (principal); K21.9 Gastro-esophageal reflux disease without esophagitis; J44.9 Chronic obstructive pulmonary disease, unspecified; I12.9 Hypertensive chronic kidney disease with stage 1 through stage 4 chronic kidney disease, or unspecified chronic kidney disease; N18.9 Chronic kidney disease, unspecified; F17.210 Nicotine dependence, cigarettes, uncomplicated
CPT/HCPCS: J7030; Q9967

== ENCOUNTER → 2019-10-10 | Outpatient (CLI) | payer MEDICARE, BC, MEDICAID | LOC: COL.RAD 11:14 | DX: Z01.812 Encounter for preprocedural laboratory examination (principal); K57.30 Diverticulosis of large intestine without perforation or abscess without bleeding; M47.816 Spondylosis without myelopathy or radiculopathy, lumbar region | CPT/HCPCS: Q9967 ==

== ENCOUNTER → 2019-11-06 | Outpatient (CLI) | payer MEDICARE, BC, MEDICAID | LOC: ZLAB.STJ 09:40 | DX: J44.1 Chronic obstructive pulmonary disease with (acute) exacerbation (principal) ==

== ENCOUNTER → 2019-11-29 | Outpatient (CLI) | payer MEDICARE, BC, MEDICAID ==
[2019-11-29 10:54] LABS: BASO # 0.1 (0.0-0.2); BASO % 0.4 % (0.0-2.0); EOS # 0.1 (0.0-0.7); EOS % 0.8 % (0-4.0); GRAN # 12.4 (1.4-6.5); HEMATOCRIT 41.7 % (42.0-52.0); HEMOGLOBIN 13.4 g/dl (13.5-18.0); LYMPH # 1.9 (1.2-3.4); MEAN CELL VOLUME 97 fl (80.0-100.0); MEAN CORPUSCULAR HEMOGLOBIN 31 pg (27.0-31.0); MEAN CORPUSCULAR HGB CONC 32 g/dl (33.0-37.0); MEAN PLATELET VOLUME 9.5 fl (7.4-10.4); MONO # 1.3 (0.1-0.6); MONO % 8.2 % (1.7-9.3); PLATELET COUNT 274 K/mm3 (130-400); RED BLOOD COUNT 4.32 M/mm3 (4.20-5.60); REDCELL DISTRIBUTION WIDTH-CV 13.7 % (11.5-14.5)
[2019-11-29 10:58] LABS: ALBUMIN 3.8 gm/dL (3.5-5.0); BILIRUBIN,TOTAL 0.4 mg/dL (0.0-1.0); CALCIUM 8.8 mg/dL (8.4-10.2); CREATININE, serum 1.22 (0.66-1.25); POTASSIUM 4.8 mmol/L (3.4-5.0); TOTAL PROTEIN 6.4 gm/dL (6.4-8.2)
== END ==
LOC: ZLAB.STJ 09:33
PROVIDERS: Family Medicine
DX: R68.89 Other general symptoms and signs (principal); R79.89 Other specified abnormal findings of blood chemistry

== ENCOUNTER → 2019-12-06 | Outpatient (CLI) | payer MEDICARE, BC, MEDICAID ==
[2019-12-06 10:26] LABS: ALBUMIN 3.7 gm/dL (3.5-5.0); BILIRUBIN UNCONJUGATED 0.2 mg/dL (0.0-1.1); BILIRUBIN,TOTAL 0.2 mg/dL (0.0-1.0); TOTAL PROTEIN 6.4 gm/dL (6.4-8.2)
== END ==
LOC: ZLAB.STJ 09:50
PROVIDERS: Family Medicine
DX: R94.5 Abnormal results of liver function studies (principal)

== ENCOUNTER → 2020-05-29 | Outpatient (CLI) | payer MEDICARE, BC, MEDICAID ==
[2020-05-29 14:00] LABS: CREATININE, serum 1.3 (0.66-1.25); POTASSIUM 3.5 mmol/L (3.4-5.0)
[2020-05-29 14:10] LABS: BASO # 0.1 (0.0-0.2); BASO % 0.5 % (0.0-2.0); EOS # 0.1 (0.0-0.7); EOS % 0.5 % (0-4.0); GRAN # 12.1 (1.4-6.5); GRAN % 79.6 % (42.2-75.2); LYMPH # 1.8 (1.2-3.4); LYMPH % 11.7 % (20.0-51.0); MEAN CELL VOLUME 95 fl (80.0-100.0); MEAN CORPUSCULAR HEMOGLOBIN 32 pg (27.0-31.0); MEAN CORPUSCULAR HGB CONC 33 g/dl (33.0-37.0); MEAN PLATELET VOLUME 9.3 fl (7.4-10.4); MONO # 1.1 (0.1-0.6); MONO % 6.9 % (1.7-9.3); PLATELET COUNT 249 K/mm3 (130-400); RED BLOOD COUNT 4.11 M/mm3 (4.20-5.60); REDCELL DISTRIBUTION WIDTH-CV 13.3 % (11.5-14.5)
== END ==
LOC: ZLAB.STJ 13:43
PROVIDERS: Family Medicine
DX: I48.91 Unspecified atrial fibrillation (principal); N18.2 Chronic kidney disease, stage 2 (mild)

== ENCOUNTER → 2020-11-30 | Outpatient (CLI) | payer MEDICARE, BC, MEDICAID ==
[2020-11-30 11:54] LABS: CALCIUM 9.1 mg/dL (8.4-10.2); CREATININE, serum 1.24 (0.66-1.25); POTASSIUM 3.8 mmol/L (3.4-5.0)
[2020-11-30 12:00] LABS: BASO # 0.1 (0.0-0.2); BASO % 0.3 % (0.0-2.0); EOS # 0.1 (0.0-0.7); EOS % 0.4 % (0-4.0); GRAN # 11.8 (1.4-6.5); GRAN % 80.6 % (42.2-75.2); HEMATOCRIT 43.6 % (42.0-52.0); HEMOGLOBIN 14.2 g/dl (13.5-18.0); LYMPH # 1.7 (1.2-3.4); LYMPH % 11.2 % (20.0-51.0); MEAN CELL VOLUME 92 fl (80.0-100.0); MEAN CORPUSCULAR HEMOGLOBIN 30 pg (27.0-31.0); MEAN CORPUSCULAR HGB CONC 33 g/dl (33.0-37.0); MEAN PLATELET VOLUME 9.2 fl (7.4-10.4); MONO % 6.9 % (1.7-9.3); PLATELET COUNT 277 K/mm3 (130-400); RED BLOOD COUNT 4.73 M/mm3 (4.20-5.60); REDCELL DISTRIBUTION WIDTH-CV 13.1 % (11.5-14.5)
== END ==
LOC: ZLAB.STJ 11:03
PROVIDERS: Family Medicine
DX: Z01.89 Encounter for other specified special examinations (principal)

== ENCOUNTER 2021-01-18 04:23 | Observation (INO) | payer MEDICARE, BC, MEDICAID ==
[~2021-01-18] VITALS: Ht 157.5 cm; Wt 85.0 kg
[2021-01-18] VITALS (11 sets, daily range): BP systolic 109–141; BP diastolic 54–75; PULSE 66–80; TEMP 97.9–98.4
[2021-01-18 04:54] LABS: BASO # 0.1 (0.0-0.2); BASO % 0.3 % (0.0-2.0); EOS # 0.2 (0.0-0.7); GRAN # 11.5 (1.4-6.5); GRAN % 77.8 % (42.2-75.2); HEMATOCRIT 40.1 % (42.0-52.0); HEMOGLOBIN 12.7 g/dl (13.5-18.0); LYMPH % 13.7 % (20.0-51.0); MEAN CELL VOLUME 96 fl (80.0-100.0); MEAN CORPUSCULAR HEMOGLOBIN 31 pg (27.0-31.0); MEAN CORPUSCULAR HGB CONC 32 g/dl (33.0-37.0); MEAN PLATELET VOLUME 9.1 fl (7.4-10.4); MONO % 6.5 % (1.7-9.3); PLATELET COUNT 221 K/mm3 (130-400); RED BLOOD COUNT 4.16 M/mm3 (4.20-5.60); REDCELL DISTRIBUTION WIDTH-CV 13.4 % (11.5-14.5)
[2021-01-18] MEDS ORDERED: ZOFRAN 4MG T4 MG/TAB PO (04:54)
[2021-01-18] MEDS ORDERED: PULMICORT0.5 MG/2 M IH (04:54)
[2021-01-18] MEDS ORDERED: PRILOSEC10 MG PO (04:55)
[2021-01-18] MEDS ORDERED: LAMISIL250 M1 (04:55)
[2021-01-18] MEDS ORDERED: ALBUTEROL1.25 MG/3 IH (04:56)
[2021-01-18] MEDS ORDERED: TYLENOL W/COD1 UDTAB PO (04:57)
[2021-01-18 05:09] LABS: ALANINE AMINOTRANSFERASE 9 U/L (4-49); ALBUMIN 3.4 gm/dL (3.5-5.0); ALKALINE PHOSPHATASE 69 U/L (50-136); ANION GAP 7 mmol/L (7-16); AST,SGOT 15 U/L (15-37); BILIRUBIN,TOTAL 0.3 mg/dL (0.0-1.0); BLOOD UREA NITROGEN 23 mg/dL (9-20); CALCIUM 8.8 mg/dL (8.4-10.2); CARBON DIOXIDE 26 mmol/L (22-30); CHLORIDE 106 mmol/L (98-107); CREATINE KINASE 31 U/L (55-170); GLUCOSE 108 mg/dL (74-106); POTASSIUM 3.5 mmol/L (3.4-5.0); SODIUM 139 mmol/L (137-145)
[2021-01-18 05:11] LABS: INR 1.2 (0.8-3.0); PROTHROMBIN TIME 13.6 SECONDS (9.7-12.8)
[2021-01-18 05:14] LABS: PARTIAL THROMBOPLASTIN TIME 31.8 SECONDS (26.0-37.0)
[2021-01-18 05:21] LABS: TROPONIN-I < 0.012 ng/mL (0.000-0.035)
--- NOTE | 2021-01-18 08:10 | NUR ---
Pt admitted to medical unit rm [id number] from ED via cart, assisted with standby assist from bed to BSC and back upon arrival. Pt A&O x 3, very HABEMATOLEL. O2 at 1 L/min via NC. Pt reports continued chest pain/pressure but minimal and improving. VSS. Reviewed orientation of room with pt and fall risk protocol. No further needs reported. Call light in reach. Bed alarm on.
[2021-01-18 08:19] LABS: COLLECTION METHOD CLEAN CATCH
[2021-01-18 08:20] LABS: MAGNESIUM 1.9 mg/dL (1.6-2.3)
[2021-01-18 08:53] LABS: CHOLESTEROL RISK RATIO 3.8
[2021-01-18 09:00] LABS: MUCOUS Present /lpf; PH 5 (5-8); SQUAMOUS EPITHELIAL 0-2 /hpf; URINE APPEARANCE Clear; URINE BACTERIA None Seen /hpf; URINE BILIRUBIN Negative (NEGATIVE); URINE BLOOD Negative (NEGATIVE); URINE COLOR Yellow; URINE GLUCOSE Negative (NEGATIVE); URINE KETONE Negative (NEGATIVE); URINE LEUKOCYTE ESTERASE Negative (NEGATIVE); URINE NITRATE Negative (NEGATIVE); URINE PROTEIN(semi-quant) Negative (NEGATIVE); URINE RBC 0-2 /hpf; URINE UROBILINOGEN Negative (NEGATIVE); URINE WBC 0-2 /hpf
--- NOTE | 2021-01-18 11:34 | NUR ---
Pt to quality assurance qa lab technician for procedure via bed accompanied by RICH Gold and RICH Massey.
--- NOTE | 2021-01-18 11:57 | NUR ---
SEE MERGE DOCUMENTATION FOR MEDICATION ADMINISTRATION TIMES AND INTRA/POST PROCEDURE SEDATION ASSESSMENTS. RIGHT HAND BARBEAU TEST NEGATIVE, JENNA TEST NEGATIVE; MD NOTIFIED, PLAN FOR FEMORAL ACCESS.
--- NOTE | 2021-01-18 12:50 | NUR ---
Pt back to room following procedure via bed accompanied by electronic lab technician nurses. Pt awake and alert, verbalizes understanding of flat time x 4 hours. Dressing over right groin CDI, soft to palpation with small bruising distal to dressing. VSS. No further needs reported. Call light in reach.
--- NOTE | 2021-01-18 13:40 | NUR ---
DIPTI contacted the patient's sister, Britta Martines (ph#[phone]), to discuss discharge plan. The patient resides at [facility] for long-term [facility]. His PCP is Dr. Asif Robles and his DPOA-HC is in EMR. It designates Britta. The alternate is his sister, Carolin Dickerson (ph#[phone]). Britta reports that the plan is for the patient to return back to [facility] upon discharge. Britta requests that DIPTI contact her sister, Carolin, for any updates. Britta states that she is also at [facility] at this time and will have heart surgery soon. DIPTI attempted to contact Carolin. DIPTI left her a voicemail. DIPTI contacted and faxed updates to Josh at [facility].
--- NOTE | 2021-01-18 16:06 | NUR ---
Bedrest complete. Right groin incision soft to palpation with dressing CDI. Pt assisted by INSPECTOR ALUMINUM BOAT to bathroom. No further needs reported. Call light in reach.
--- NOTE | 2021-01-18 18:35 | NUR ---
Pt assisted back to bed from chair. Right groin site remains soft to palpation, dressing CDI. Pt denies needs at this time. Call light in reach. Bed alarm on.
--- NOTE | 2021-01-18 19:09 | NUR ---
Report to RICH Linares.
--- NOTE | 2021-01-18 21:00 | NUR ---
PATIENT WAS RECEIVED IN BED ASLEEP,DUE MEDS GIVEN,DENIES PAIN.NO BLEEDING OBSERVED.ASSESSMENT DONE.NO OTHER NEEDS AT THIS TIME.
[2021-01-19 00:14] VITALS: BP 108/54; PULSE 99; TEMP 97.2
[2021-01-19 04:35] VITALS: BP 124/63; PULSE 88; TEMP 97.9
--- NOTE | 2021-01-19 05:08 | NUR ---
PATIENT HAD A CALM NIGHT ON O2 VIA NC AT 2L.DENIES PAIN.NO OTHER CONCERNS AT THIS TIME.
[2021-01-19 07:10] VITALS: BP 136/66; PULSE 91; TEMP 98.1
[2021-01-19 07:11] LABS: BASO # 0.1 (0.0-0.2); BASO % 0.3 % (0.0-2.0); EOS # 0.1 (0.0-0.7); EOS % 0.3 % (0-4.0); GRAN # 12.9 (1.4-6.5); GRAN % 82.9 % (42.2-75.2); HEMATOCRIT 38.1 % (42.0-52.0); HEMOGLOBIN 12.4 g/dl (13.5-18.0); LYMPH # 1.5 (1.2-3.4); LYMPH % 9.4 % (20.0-51.0); MEAN CELL VOLUME 94 fl (80.0-100.0); MEAN CORPUSCULAR HEMOGLOBIN 31 pg (27.0-31.0); MEAN CORPUSCULAR HGB CONC 33 g/dl (33.0-37.0); MEAN PLATELET VOLUME 8.9 fl (7.4-10.4); MONO % 6.5 % (1.7-9.3); PLATELET COUNT 243 K/mm3 (130-400); RED BLOOD COUNT 4.07 M/mm3 (4.20-5.60); REDCELL DISTRIBUTION WIDTH-CV 13.3 % (11.5-14.5)
[2021-01-19 07:26] LABS: CALCIUM 8.4 mg/dL (8.4-10.2); CREATININE, serum 1.13 (0.66-1.25); POTASSIUM 3.9 mmol/L (3.4-5.0)
--- NOTE | 2021-01-19 07:45 | NUR ---
Patientsitting up in chair with 2 L via nasal canula. Breath sounds diminished at bases. No shortness of breath at rest. telemetry. Heart rate regular. INT in Left wrist with no phlebitis or infiltrations. No complaints of pain at this time. Edema in lower extremities without pitting.
--- NOTE | 2021-01-19 08:10 | NUR ---
Pt assessment complete. Pt is resting with eyes closed this morning, arouses to voice. He is A/O x4. Asking if he is going back to [facility] today. POC discussed. Pt on 2L O2 via NC, reports this is chronic. Has dyspnea on exertion. Pt denies any pain. Groin site CDI, large amount of bruising in place. No further needs at this time. Call light within reach.
[2021-01-19] MEDS ORDERED: ASPIRIN E.C. 8181 MG PO (08:16)
[2021-01-19] MEDS ORDERED: ZEBETA 5MG5 MG PO (08:18)
[2021-01-19 09:47] VITALS: BP 136/66; PULSE 91; TEMP 98.1
--- NOTE | 2021-01-19 09:54 | NUR ---
Initial visit; Patient thanked Content Engineer for looking in on him and offering encouyragement and prayer.
--- NOTE | 2021-01-19 10:25 | NUR ---
The patient is ready to d/c today. The patient's sister, Carolin, returned DIPTI's phone call. DIPTI updated Carolin. Carolin is agreeable for the patient to return back to [facility] today and states that she does not need to know the transport time. The patient is to discharge today, 01/19, back to [facility] for long-term care. Transportation was scheduled at 1130, via [facility]. DIPTI informed the patient's RN of the time. No additional needs at this time.
[2021-01-19 10:58] VITALS: BP 131/68; PULSE 91; TEMP 97.6
--- NOTE | 2021-01-19 12:08 | NUR ---
IV to LW dc'd catheter tip intact. Pt wheeled out by [facility] staff at this time.
== END 2021-01-19 12:05 ==
LOC: COL.ER 04:23 → MEDICAL 06:05
PROVIDERS: Emergency Medicine; Physician Assistant; ADMIT Internal Medicine
DX: I20.0 Unstable angina (principal); I44.0 Atrioventricular block, first degree; I45.10 Unspecified right bundle-branch block; I45.3 Trifascicular block; I44.4 Left anterior fascicular block; Z20.822 Contact with and (suspected) exposure to COVID-19; J44.9 Chronic obstructive pulmonary disease, unspecified; J96.11 Chronic respiratory failure with hypoxia; I12.9 Hypertensive chronic kidney disease with stage 1 through stage 4 chronic kidney disease, or unspecified chronic kidney disease; N18.2 Chronic kidney disease, stage 2 (mild); G47.33 Obstructive sleep apnea (adult) (pediatric); E78.5 Hyperlipidemia, unspecified; D72.829 Elevated white blood cell count, unspecified; K21.9 Gastro-esophageal reflux disease without esophagitis; G43.909 Migraine, unspecified, not intractable, without status migrainosus; M19.90 Unspecified osteoarthritis, unspecified site; N40.0 Benign prostatic hyperplasia without lower urinary tract symptoms; I08.0 Rheumatic disorders of both mitral and aortic valves; Z88.1 Allergy status to other antibiotic agents; Z88.5 Allergy status to narcotic agent; Z88.8 Allergy status to other drugs, medicaments and biological substances; Z79.899 Other long term (current) drug therapy; Z85.828 Personal history of other malignant neoplasm of skin; Z87.891 Personal history of nicotine dependence
CPT/HCPCS: C1760; C1769; C1894; G0378; J1644; J1650; J2250; J3010; J7030; Q9967

== ENCOUNTER → 2021-05-31 | Outpatient (REF) ==
[~2021-05-31] MED LIST changes: +ASPIRIN E.C. 8181 MG PO; +LAMISIL250 M1; +PRILOSEC10 MG PO; +TYLENOL W/COD1 UDTAB PO; +ZEBETA 5MG5 MG PO; +ZOFRAN 4MG T4 MG/TAB PO
[2021-05-31 10:14] LABS: BASO # 0.1 (0.0-0.2); BASO % 0.5 % (0.0-2.0); EOS # 0.1 (0.0-0.7); EOS % 0.4 % (0-4.0); GRAN # 11.3 (1.4-6.5); GRAN % 83.6 % (42.2-75.2); HEMATOCRIT 41.9 % (42.0-52.0); HEMOGLOBIN 13.4 g/dl (13.5-18.0); LYMPH # 1.4 (1.2-3.4); MEAN CELL VOLUME 94 fl (80.0-100.0); MEAN CORPUSCULAR HEMOGLOBIN 30 pg (27.0-31.0); MEAN CORPUSCULAR HGB CONC 32 g/dl (33.0-37.0); MEAN PLATELET VOLUME 9.3 fl (7.4-10.4); MONO # 0.7 (0.1-0.6); MONO % 4.8 % (1.7-9.3); PLATELET COUNT 248 K/mm3 (130-400); RED BLOOD COUNT 4.45 M/mm3 (4.20-5.60); REDCELL DISTRIBUTION WIDTH-CV 13.6 % (11.5-14.5)
[2021-05-31 10:23] LABS: CREATININE, serum 1.24 (0.66-1.25)
== END ==
LOC: ZLAB.STJ 10:04
PROVIDERS: Family Medicine
DX: R68.89 Other general symptoms and signs (principal); E66.01 Morbid (severe) obesity due to excess calories

== ENCOUNTER → 2021-07-08 | Outpatient (CLI) | payer MEDICARE, BC, MEDICAID ==
[2021-07-08 20:58] LABS: CALCIUM 8.6 mg/dL (8.4-10.2); CREATININE, serum 1.21 (0.66-1.25); POTASSIUM 4.3 mmol/L (3.4-5.0)
[2021-07-08 21:03] LABS: BASO # 0.1 (0.0-0.2); BASO % 0.5 % (0.0-2.0); EOS # 0.5 (0.0-0.7); EOS % 3.5 % (0-4.0); GRAN # 10.4 (1.4-6.5); GRAN % 74.9 % (42.2-75.2); HEMATOCRIT 38.7 % (42.0-52.0); HEMOGLOBIN 12.5 g/dl (13.5-18.0); LYMPH # 1.9 (1.2-3.4); LYMPH % 13.8 % (20.0-51.0); MEAN CELL VOLUME 94 fl (80.0-100.0); MEAN CORPUSCULAR HEMOGLOBIN 30 pg (27.0-31.0); MEAN CORPUSCULAR HGB CONC 32 g/dl (33.0-37.0); MEAN PLATELET VOLUME 9.5 fl (7.4-10.4); MONO # 0.9 (0.1-0.6); MONO % 6.6 % (1.7-9.3); PLATELET COUNT 236 K/mm3 (130-400); RED BLOOD COUNT 4.12 M/mm3 (4.20-5.60); REDCELL DISTRIBUTION WIDTH-CV 13.3 % (11.5-14.5)
== END ==
LOC: ZLAB.STJ 20:10
PROVIDERS: Family Medicine
DX: N18.2 Chronic kidney disease, stage 2 (mild) (principal)

== ENCOUNTER → 2021-08-17 | Outpatient (CLI) | payer MEDICARE, BC, MEDICAID | LOC: ZLAB.STJ 10:11 | DX: Z01.89 Encounter for other specified special examinations (principal) ==

== ENCOUNTER → 2021-08-25 | Outpatient (CLI) | payer MEDICARE, BC, MEDICAID | LOC: ZLAB.STJ 10:58 | DX: Z51.81 Encounter for therapeutic drug level monitoring (principal) ==

== ENCOUNTER → 2021-12-01 | Outpatient (CLI) | payer MEDICARE, BC, MEDICAID ==
[2021-12-01 11:30] LABS: CALCIUM 8.9 mg/dL (8.4-10.2); CREATININE, serum 1.21 mg/dL (0.72-1.25); POTASSIUM 3.8 mmol/L (3.5-4.5)
[2021-12-01 11:56] LABS: HEMATOCRIT 41.1 % (42.0-52.0); HEMOGLOBIN 12.9 g/dl (13.5-18.0); MEAN CELL VOLUME 98 fl (80.0-100.0); MEAN CORPUSCULAR HEMOGLOBIN 31 pg (27-31); MEAN CORPUSCULAR HGB CONC 31 g/dl (33.0-37.0); MEAN PLATELET VOLUME 9.5 fl (7.4-10.4); PLATELET COUNT 270 K/mm3 (130-400); RED BLOOD COUNT 4.18 M/mm3 (4.20-5.60); REDCELL DISTRIBUTION WIDTH-CV 13.6 % (11.5-14.5)
== END ==
LOC: ZLAB.STJ 10:29
PROVIDERS: Family Medicine
DX: I10 Essential (primary) hypertension (principal)

== ENCOUNTER → 2021-12-22 | Outpatient (CLI) | payer MEDICARE, BC, MEDICAID ==
[2021-12-22 15:51] LABS: COLLECTION METHOD CLEAN CATCH
[2021-12-22 15:57] LABS: MUCOUS Present (NOT PRESENT); PH 5 (5-8); SQUAMOUS EPITHELIAL None Seen /hpf (0-10); URINE APPEARANCE Clear (CLEAR/HAZY); URINE BACTERIA None Seen /hpf (NONE SEEN); URINE BILIRUBIN Negative (NEGATIVE); URINE BLOOD Negative (NEGATIVE); URINE COLOR Yellow (YELLOW); URINE GLUCOSE Negative (NEGATIVE); URINE KETONE Negative (NEGATIVE); URINE LEUKOCYTE ESTERASE Negative (NEGATIVE); URINE NITRATE Negative (NEGATIVE); URINE PROTEIN(semi-quant) Negative (NEGATIVE); URINE RBC 0-2 /hpf (0-2); URINE UROBILINOGEN Negative (NEGATIVE)
== END ==
LOC: ZLAB.STJ 15:44
PROVIDERS: Family Medicine
DX: N39.0 Urinary tract infection, site not specified (principal)

== ENCOUNTER → 2022-02-03 | Outpatient (CLI) | payer MEDICARE, BC, MEDICAID | LOC: COL.RAD 13:16 | DX: Z12.2 Encounter for screening for malignant neoplasm of respiratory organs (principal); J43.9 Emphysema, unspecified; J98.4 Other disorders of lung; Z87.891 Personal history of nicotine dependence ==

== ENCOUNTER → 2022-02-23 | Outpatient (CLI) | payer MEDICARE, BC, MEDICAID | LOC: ZLAB.STJ 11:15 | DX: J96.11 Chronic respiratory failure with hypoxia (principal) ==

== ENCOUNTER 2022-03-05 01:50 | Emergency (ER) | payer MEDICARE, BC, MEDICAID ==
[2022-03-05 01:55] VITALS: TEMP 98
[2022-03-05 03:06] LABS: BASO # 0.1 K/mm3 (0.0-0.2); BASO % 0.4 % (0.0-2.0); EOS % 0.1 % (0.0-4.0); GRAN # 11.7 K/mm3 (1.4-6.5); GRAN % 74.4 % (42.2-75.2); HEMATOCRIT 41.8 % (42.0-52.0); LYMPH # 2.7 K/mm3 (1.2-3.4); LYMPH % 17.4 % (20.0-51.0); MEAN CELL VOLUME 93 fl (80.0-100.0); MEAN CORPUSCULAR HEMOGLOBIN 31 pg (27-31); MEAN CORPUSCULAR HGB CONC 34 g/dl (33.0-37.0); MEAN PLATELET VOLUME 9.2 fl (7.4-10.4); MONO # 1.1 K/mm3 (0.1-0.6); MONO % 7.1 % (1.7-9.3); RED BLOOD COUNT 4.48 M/mm3 (4.20-5.60); REDCELL DISTRIBUTION WIDTH-CV 13.3 % (11.5-14.5)
[2022-03-05 03:19] LABS: ALBUMIN 3.7 gm/dL (3.4-4.8); BILIRUBIN,TOTAL 0.4 mg/dL (0.2-1.2); CALCIUM 8.7 mg/dL (8.4-10.2); CREATININE, serum 1.34 mg/dL (0.72-1.25); TOTAL PROTEIN 6.5 gm/dL (6.2-8.1)
[2022-03-05 03:21] LABS: PLATELET COUNT 248 K/mm3 (130-400)
[2022-03-05 03:22] LABS: TROPONIN-I 0.014 ng/mL (0.00-0.033)
[2022-03-05 07:32] VITALS: BP 166/82; PULSE 72
== END 2022-03-05 07:32 | disposition home or self-care (01) ==
LOC: COL.ER 01:50
PROVIDERS: Emergency Medicine
DX: R07.89 Other chest pain (principal); D72.829 Elevated white blood cell count, unspecified; J44.9 Chronic obstructive pulmonary disease, unspecified; Z99.81 Dependence on supplemental oxygen

== ENCOUNTER 2022-09-24 07:35 | Emergency (ER) | payer MEDICARE, BC, MEDICAID ==
[~2022-09-24] VITALS: Ht 157.5 cm; Wt 86.4 kg
[2022-09-24 08:04] LABS: BASO # 0.1 K/mm3 (0.0-0.2); BASO % 0.4 % (0.0-2.0); EOS % 0.3 % (0.0-4.0); GRAN # 10.8 K/mm3 (1.4-6.5); GRAN % 81.8 % (42.2-75.2); HEMATOCRIT 40.4 % (42.0-52.0); HEMOGLOBIN 13.5 g/dl (13.5-18.0); LYMPH # 0.8 K/mm3 (1.2-3.4); LYMPH % 5.9 % (20.0-51.0); MEAN CELL VOLUME 92 fl (80.0-100.0); MEAN CORPUSCULAR HEMOGLOBIN 31 pg (27-31); MEAN CORPUSCULAR HGB CONC 33 g/dl (33.0-37.0); MEAN PLATELET VOLUME 8.6 fl (7.4-10.4); MONO # 1.5 K/mm3 (0.1-0.6); MONO % 11.1 % (1.7-9.3); PLATELET COUNT 180 K/mm3 (130-400); REDCELL DISTRIBUTION WIDTH-CV 13.2 % (11.5-14.5)
[2022-09-24 08:11] LABS: INR 1.2 (0.8-3.0); PROTHROMBIN TIME 14.1 SECONDS (9.7-12.8)
[2022-09-24 08:14] LABS: PARTIAL THROMBOPLASTIN TIME 31.1 SECONDS (26.0-37.0)
[2022-09-24 08:21] LABS: ALANINE AMINOTRANSFERASE 15 U/L (0-55); ALBUMIN 3.3 gm/dL (3.4-4.8); ALKALINE PHOSPHATASE 82 U/L (40-150); ANION GAP 12 mmol/L (7-16); AST,SGOT 16 U/L (5-34); BILIRUBIN,TOTAL 0.6 mg/dL (0.2-1.2); BLOOD UREA NITROGEN 25 mg/dL (8-26); CALCIUM 8.8 mg/dL (8.4-10.2); CARBON DIOXIDE 25 mmol/L (23-31); CHLORIDE 104 mmol/L (98-107); CREATININE, serum 1.32 mg/dL (0.72-1.25); GLUCOSE 95 mg/dL (70-99); POTASSIUM 3.9 mmol/L (3.5-4.5); SODIUM 141 mmol/L (136-145); TOTAL PROTEIN 6.3 gm/dL (6.2-8.1)
[2022-09-24 08:32] LABS: TROPONIN-I < 0.010 ng/mL (0.00-0.033)
[2022-09-24] MEDS ORDERED: MOLNUPIRAVIR (200 MG PO (10:49)
[2022-09-24 11:45] VITALS: BP 149/89; PULSE 92; TEMP 98.5
== END 2022-09-24 11:47 ==
LOC: COL.ER 07:35
PROVIDERS: Emergency Medicine
DX: U07.1 COVID-19 (principal); D72.829 Elevated white blood cell count, unspecified; R79.1 Abnormal coagulation profile; Z73.0 Burn-out; J44.9 Chronic obstructive pulmonary disease, unspecified; Z99.81 Dependence on supplemental oxygen
CPT/HCPCS: Q9967

== ENCOUNTER → 2024-01-31 | Outpatient (CLI) | payer MEDICARE, BC, MEDICAID ==
[~2024-01-31] MED LIST changes: +MOLNUPIRAVIR (200 MG PO; +PREDNISONE50 MG PO
== END ==
LOC: COL.RAD 08:40
DX: Z12.2 Encounter for screening for malignant neoplasm of respiratory organs (principal); R91.8 Other nonspecific abnormal finding of lung field; Z87.891 Personal history of nicotine dependence

== ENCOUNTER 2024-07-10 09:34 | Inpatient (IN) | payer MEDICARE, BC, MEDICAID ==
[2006-04-25 10:24] VITALS: BP 122/41
[~2024-07-10] VITALS: Ht 165.1 cm; Wt 90.8 kg
[2024-07-10] VITALS (396 sets, daily range): BP systolic 78–167; BP diastolic 41–72; PULSE 105–110; TEMP 99.1–100.7; O2SAT 79–100
[~2024-07-10 09:34] MED LIST changes: -GLUCOSAMIN 500; +GLUCOSAMIN 500 PO; -K-DUR 10 MEQ T10 MEQ PO; +K-DUR20 MEQ PO; -THERA1 TAB PO
[2024-07-10] MEDS ORDERED: NS 1,000 ML IV ONE (10:15)
[2024-07-10] MEDS ORDERED: dexAMETHasone 10 MG/ML VIAL IV ONE (10:15)
[2024-07-10] MEDS ORDERED: Albuterol/Ipratropium 3 MG-0.5 MG/3 ML Neb Soln IH ONE (10:15)
[2024-07-10 10:19] LABS: HEMATOCRIT 46.2 % (42.0-52.0); HEMOGLOBIN 14.9 g/dl (13.5-18.0); MEAN CELL VOLUME 96 fl (80.0-100.0); MEAN CORPUSCULAR HEMOGLOBIN 31 pg (27-31); MEAN CORPUSCULAR HGB CONC 32 g/dl (33.0-37.0); MEAN PLATELET VOLUME 9.1 fl (7.4-10.4); PLATELET COUNT 175 K/mm3 (130-400); REDCELL DISTRIBUTION WIDTH-CV 13.7 % (11.5-14.5)
[2024-07-10 10:22] LABS: ARTERIAL BLD GAS O2 SATURATION 88.9 % (92-100); ARTERIAL BLD GAS TCO2 CT 24.4; ARTERIAL BLOOD GAS HCO3 23.3 meq/L (22-26); ARTERIAL BLOOD GAS PCO2 34.1 mmHg (35-45); ARTERIAL BLOOD GAS PO2 54.1 mmHg (80-100); ARTERIAL BLOOD GAS pH 7.45 (7.35-7.45)
[2024-07-10 10:33] LABS: ALANINE AMINOTRANSFERASE 22 U/L (0-55); ALBUMIN 3.3 g/dL (3.4-4.8); ALKALINE PHOSPHATASE 115 U/L (40-150); ANION GAP 15 mmol/L (7-16); AST,SGOT 22 U/L (5-34); BILIRUBIN,TOTAL 1.3 mg/dL (0.2-1.2); BLOOD UREA NITROGEN 24 mg/dL (8-26); CALCIUM 9.4 mg/dL (8.4-10.2); CHLORIDE 103 mEq/L (98-107); CREATININE, serum 1.64 mg/dL (0.72-1.25); GLUCOSE 215 mg/dL (70-99); POTASSIUM 4.1 mEq/L (3.5-4.5); SODIUM 141 mEq/L (136-145); TOTAL PROTEIN 6.9 g/dl (6.2-8.1)
[2024-07-10 10:42] LABS: TROPONIN-I < 0.010 ng/mL (0.00-0.033)
[2024-07-10] MEDS ORDERED: cefTRIAXone 1 G in Water For Injection,Sterile 10 ML IV ONE (11:15)
[2024-07-10] MEDS ORDERED: Furosemide 40 MG/4 ML VIAL IV ONE (11:15)
[2024-07-10 11:16] LABS: BAND 15 % (0-10); HYPOCHROMIA 1+; NEUTROPHILS 79 % (42.0-75.2); PLATELET ESTIMATE NORMAL (NORMAL)
[2024-07-10 11:17] LABS: LYMPHOCYTE 2 % (20.0-51.0)
[2024-07-10] MEDS ORDERED: NS 100 ML IV SCH (11:25)
[2024-07-10] MEDS ORDERED: Iohexol 300 - 100 ML VIAL IV ONE (11:28)
[2024-07-10 12:27] LABS: COLLECTION METHOD CLEAN CATCH
[2024-07-10] MEDS ORDERED: Acetaminophen 325 MG TAB PO PRN (12:30)
[2024-07-10] MEDS ORDERED: Polyethylene Glycol 3350 17 GM PDS PO PRN (12:30)
[2024-07-10] MEDS ORDERED: Ondansetron 4 MG/2 ML VIAL IV PRN (12:30)
[2024-07-10] MEDS ORDERED: Docusate Sodium 100 MG CAP PO PRN (12:30)
[2024-07-10 12:38] LABS: PH 5.5 (5.0-8.5); URINE APPEARANCE CLEAR (CLEAR/HAZY); URINE BLOOD NEGATIVE (NEGATIVE); URINE COLOR YELLOW (YELLOW); URINE GLUCOSE NEGATIVE (NEGATIVE); URINE KETONE NEGATIVE (NEGATIVE); URINE NITRATE NEGATIVE (NEGATIVE); URINE PROTEIN(semi-quant) 1+ (NEGATIVE)
[2024-07-10] MEDS ORDERED: cefTRIAXone 1 G in Water For Injection,Sterile 10 ML IV SCH (12:45)
[2024-07-10] MEDS ORDERED: Albuterol/Ipratropium 3 MG-0.5 MG/3 ML Neb Soln IH PRN (12:45)
[2024-07-10] MEDS ORDERED: NS 1,000 ML IV SCH (12:45)
[2024-07-10] MEDS ORDERED: Azithromycin 500 MG in NS 250 ML IV SCH (12:45)
--- NOTE | 2024-07-10 13:56 | NUR ---
Pt arrived to ICU 3 from ED at this time. Report received from RICH Mejia. Pt covid positive at [facility] last Monday, but negative here today. Will place in covid isolation due to recent positive and pt having covid symptoms. Pt admitted to ICU for respiratory failure; is on 15L oxymask. Upon arrival to unit pt needed assistance with being moved from stretcher to icu bed. Pt significantly short of air with any movement. Is unable to answer majority of admission questions due to respiratory status. Bilateral hearing aids and pt's clothing placed in closet. At [address] Malave that pt's respiratory rate is in the 50's and SPO2 89% on 15L oxymask. Dr. Malave would like pt placed on airvo, ABG, and Dr. Chung consulted. RT notifed of need for airvo and ABG. Dr. Chung notified of consult and will be in shortly. Majority of admission intake obtained from paper work from [facility].
[2024-07-10] MEDS ORDERED: Albuterol/Ipratropium 3 MG-0.5 MG/3 ML Neb Soln IH SCH ×2 (14:00→20:00)
--- NOTE | 2024-07-10 14:18 | NUR ---
Dr. Chung and Dr. Malave at the bedside. Dr. Chung recommending to pt that he be intubated due to high respiratory rate, high oxygen needs, and pna. Pt was previously a DNR/DNI but pt would like to proceed with intubation with mechanical ventilation and be a full code. Pt alert and oriented at the time of this decision. Pt voices to staff that he would like his sister Carolin to be his point of contact and would like her called and updated. Anesthesia and RT made aware of need for intubation.
[2024-07-10] MEDS ORDERED: ZOLOFT 50MG50 MG PO (14:50)
[2024-07-10] MEDS ORDERED: MELATONIN3 M1 PO (14:51)
[2024-07-10] MEDS ORDERED: XANAX 0.5MG0.5 MG PO (14:52)
[2024-07-10] MEDS ORDERED: PAXLOVID 150-11 EACH PO (14:54)
[2024-07-10] MEDS ORDERED: NITROSTAT0.4 MG/TAB SL (14:57)
[2024-07-10] MEDS ORDERED: fentaNYL 100 ML IV SCH (15:00)
[2024-07-10] MEDS ORDERED: Naloxone 0.4 MG/ML VIAL IV PRN (15:00)
--- NOTE | 2024-07-10 15:03 | NUR ---
transfer worker was informed pt is from [facility] and Infrastructure Consultant needs to know pt's positive COVID test date. DIPTI called Josh at [facility] who reports this was done 07/05/24. Josh attempted to email this to the ICU desk and it was busy. DIPTI provided office fax and has not yet received this via fax. DIPTI informed Andrea of pt's positive test date. DIPTI informed ICU DIPTI Chiu of the above.
--- NOTE | 2024-07-10 15:20 | NUR ---
1520- Pt being prepped for intubation 1521- RSI meds administered by WHITNEY Emmanuel 1522- 8.0 ETT placed 22cm at gums; color change verified. 1530- Bilateral soft wrist restraints placed. 1535- Arterial line placed by WHITNEY Emmanuel. Propofol and fentanyl gtt initiated. 1610- Levophed gtt initiated due to systolics in the 70's. 1635- OG placed; 70cm at gums. Dr. Dimas contacted at 1549 for central line placement. States he will be here after while to place line.
--- NOTE | 2024-07-10 15:51 | NUR ---
Pt's sister Carolin called at this time to obtain consent for a central line and arterial line. Carolin gave phone consent to both. Carolin was also updated on pt's condition by this RN and Dr. Chung. All questions answered appropriately. Carolin states she is in swing bed at [facility] and non-weightbearing due to injury; therefore she is unable to be here in person. She can be reached at [phone].
[2024-07-10] MEDS ORDERED: Heparin 5,000 UNITS/ML 1 ML VIAL SQ SCH (16:00)
[2024-07-10 16:12] LABS: ARTERIAL BLD GAS O2 SATURATION 99.1 % (92-100); ARTERIAL BLD GAS TCO2 CT 20.6; ARTERIAL BLOOD GAS BASE EXCESS -1.7 (-2-2); ARTERIAL BLOOD GAS HCO3 19.8 meq/L (22-26); ARTERIAL BLOOD GAS PCO2 26.5 mmHg (35-45); ARTERIAL BLOOD GAS pH 7.49 (7.35-7.45)
[2024-07-10 16:13] LABS: ARTERIAL BLOOD GAS PO2 208.7 mmHg (80-100)
--- NOTE | 2024-07-10 16:51 | NUR ---
PT BAGGED BY ANESTHESIA WITH MASK AMBU BAG. THEN INTUBATED AT 1522 8.0 ETT 23 LIPS PER ANESTHESIA GOOD COLOR CHANGE ON ETCO2 DETECTOR AND GOOD BREATH SOUNDS BILAT. HOLISTER ON THEN PLACED ON VENTILATOR ACVC+ VT 450 R20 PEEP [address] AVELAR AGREED WITH VENT SETTINGS. ABG DRAWN AT 1600 DECREASED THE RR TO 16 FIO2 TO 50% PER RESULTS. SXN MODERATE THICK YELLOW PINK TINGED SPUTUM AND SENT TO LAB.
[2024-07-10] MEDS ORDERED: Insulin Lispro (HumaLOG) SQ SCH (17:00)
[2024-07-10] MEDS ORDERED: Succinylcholine PF 200 MG/10 ML SYRINGE IV ONE (17:00)
--- NOTE | 2024-07-10 19:43 | NUR ---
PATIENT CURRENTLY INTUBATED AND SEDATED. BILATERAL WRIST RESTRAINTS IN PLACE. ET TUBE AT 22 AT THE GUMS, OG TUBE AT 70 AT THE LIPS TO LIS. ART LINE IN PLACE. CENTRAL LINE TO RIGHT IJ WITH GTTS INFUSING. GARCIA CATHTER IN PLACE AND DRAINING WELL. NO ACUTE EVENTS.
[2024-07-11] VITALS (1229 sets, daily range): BP systolic 82–123; BP diastolic 34–66; PULSE 76–91; TEMP 98.2–98.6; O2SAT 79–100
[2024-07-11 05:09] LABS: ARTERIAL BLD GAS O2 SATURATION 97.1 % (92-100); ARTERIAL BLD GAS TCO2 CT 19.7; ARTERIAL BLOOD GAS BASE EXCESS -3.8 (-2-2); ARTERIAL BLOOD GAS HCO3 18.9 meq/L (22-26); ARTERIAL BLOOD GAS PCO2 27.5 mmHg (35-45); ARTERIAL BLOOD GAS PO2 87.3 mmHg (80-100); ARTERIAL BLOOD GAS pH 7.45 (7.35-7.45)
[2024-07-11 05:29] LABS: BASO % 0.2 % (0.0-2.0); GRAN # 16.5 K/mm3 (1.4-6.5); GRAN % 92.3 % (42.2-75.2); HEMATOCRIT 38.4 % (42.0-52.0); LYMPH # 0.4 K/mm3 (1.2-3.4); LYMPH % 2.1 % (20.0-51.0); MEAN CELL VOLUME 92 fl (80.0-100.0); MEAN CORPUSCULAR HEMOGLOBIN 31 pg (27-31); MEAN CORPUSCULAR HGB CONC 33 g/dl (33.0-37.0); MEAN PLATELET VOLUME 9.2 fl (7.4-10.4); MONO # 0.8 K/mm3 (0.1-0.6); MONO % 4.7 % (1.7-9.3); PLATELET COUNT 191 K/mm3 (130-400); RED BLOOD COUNT 4.18 M/mm3 (4.20-5.60); REDCELL DISTRIBUTION WIDTH-CV 13.6 % (11.5-14.5)
[2024-07-11 05:31] LABS: HEMOGLOBIN 12.8 g/dl (13.5-18.0)
--- NOTE | 2024-07-11 05:31 | NUR ---
SEDATION VACATION NOT COMPLETED AT THIS TIME. ON MINIMAL SEDATION, PATIENT WAKES TO VOICE, FOLLOWS COMMANDS AND NODS HEAD.
[2024-07-11 05:44] LABS: ALBUMIN 2.3 g/dL (3.4-4.8); BILIRUBIN,TOTAL 0.7 mg/dL (0.2-1.2); CALCIUM 8.3 mg/dL (8.4-10.2); CREATININE, serum 1.53 mg/dL (0.72-1.25); MAGNESIUM 1.6 mg/dL (1.6-2.6); PHOSPHOROUS 3.4 mg/dL (2.3-4.7); TOTAL PROTEIN 5.6 g/dl (6.2-8.1)
[2024-07-11 05:47] LABS: POTASSIUM 2.8 mEq/L (3.5-4.5)
[2024-07-11] MEDS ORDERED: Potassium Chloride 100 ML IV SCH ×2 (06:00→15:45)
[2024-07-11] MEDS ORDERED: *Potassium Replacement Protocol MC SCH (06:00)
--- NOTE | 2024-07-11 07:00 | NUR ---
Report received from RICH Nelson. Pt remains intubated and sedated. Has has some periods of agitation; sedation adjusted. Currently tolerating ventilator well. Pt on levo at 0.04 with BP stable. Arterial line to right radial; currently not reading well and does not correlate with NIBP. Bilateral soft wrist restraints in place. TLC to RIJ; dressing saturated with blood. Dressing had to be changed x1 last night due to bleeding; will notify Dr. London.
[2024-07-11] MEDS ORDERED: Dextrose 50% Water 25 GM/50 ML SYRINGE IV PRN (07:15)
[2024-07-11] MEDS ORDERED: Dextrose (Glucose) 15 GM (4 x 3.75 GM) Chewable TABLET PACK PO PRN (07:15)
[2024-07-11] MEDS ORDERED: Glucagon 1 MG VIAL IM PRN (07:15)
[2024-07-11] MEDS ORDERED: Insulin Lispro (HumaLOG) SQ SCH (08:26)
[2024-07-11] MEDS ORDERED: Magnesium Sulfate 4% 50 ML IV ONE (08:30)
--- NOTE | 2024-07-11 08:30 | NUR ---
Pt seen by Dr. Kim London at this time. Would like heparin D/C'd due to bleeding around RIJ TLC. Vent changes made by Dr. London; RT made aware. Plan to keep pt intubated and sedated until at least tomorrow AM and then will reassess for weaning trial/extubation. Ok to start tube feeds and DC NS once tube feeds are initiated. This RN verified with Dr. London that ETT and RIJ TLC are in the correct position.
[2024-07-11] MEDS ORDERED: dexAMETHasone 10 MG/ML VIAL IV SCH (09:00)
[2024-07-11] MEDS ORDERED: cefTRIAXone 1 G in Water For Injection,Sterile 10 ML IV SCH (09:00)
[2024-07-11] MEDS ORDERED: ASPIRIN 81M81 MG/TA2 PO (09:10)
[2024-07-11] MEDS ORDERED: ZEBETA 5MG5 MG PO (09:12)
[2024-07-11] MEDS ORDERED: SYSTANE 0.4%-0.1 SOL OU (09:21)
--- NOTE | 2024-07-11 10:43 | NUR ---
sawmill relief worker reviewed the DPOA-HC which appoints Britta as primary and Carolin as secondary. Patient had listed Carolin as primary contact. DIPTI contacted Josh at [facility], Josh explained Britta has so Carolin is his DPOA-HC. DIPTI updated Josh that patient wanted to be full code and intubated yesterday. Due to patient being intubated, sedated and COVID-19 positive on Monday, bilingual social worker contacted patient's DPOA-HC, Carolin, P# [phone]. Carolin is currently in the [facility] at their swing bed unit and will be out on the . Patient's PCP is Dr. Robles, Pharmacy is listed as [facility]. Insurance is Medicare A and B, [facility], [facility]. DPOA-HC is Carolin. DME is CPAP, walker, oxygen and breathing treatment. Staff at [facility] help with ADLS. Patient will return to [facility] at time of discharge. Discharge plan: [facility] LTC
[2024-07-11] MEDS ORDERED: Remdesivir 100 MG in NS 100 ML IV SCH (16:00)
--- NOTE | 2024-07-11 22:45 | NUR ---
PATIENT IN BED, SEDATED AND INTUBADED. FOLLOWS COMMANDS, IS NOT BREATHING OVER THE VENT, NO COUGH NOTED, NO SPUTUM NOTED. PATIENT IN 2 POINT SOFT WRIST RESTRAINTS, CMS INTACT. BED IN LOW POSITION, CALL LIGHT IN REACH.
--- NOTE | 2024-07-11 23:30 | NUR ---
UNABLE TO PROVIDE PATIENT EDUCATION TO PATIENT, FAMILY, OR CAREGIVERS THE PATIENT IS INTUBATED AND SEDATED, AND THE FAMILY/CAREGIVERS ARENT AVAILABLE
[2024-07-12] VITALS (1184 sets, daily range): BP systolic 93–118; BP diastolic 55–67; PULSE 72–89; TEMP 97.8–98.1; O2SAT 89–100
[2024-07-12 04:37] LABS: HEMOGLOBIN 11.4 g/dl (13.5-18.0); MEAN CORPUSCULAR HEMOGLOBIN 31 pg (27-31); MEAN CORPUSCULAR HGB CONC 32 g/dl (33.0-37.0); MEAN PLATELET VOLUME 9.6 fl (7.4-10.4); PLATELET COUNT 176 K/mm3 (130-400); RED BLOOD COUNT 3.67 M/mm3 (4.20-5.60)
[2024-07-12 04:46] LABS: HEMATOCRIT 35.5 % (42.0-52.0); MEAN CELL VOLUME 97 fl (80.0-100.0)
[2024-07-12 04:56] LABS: BILIRUBIN,TOTAL 0.4 mg/dL (0.2-1.2); CALCIUM 8.3 mg/dL (8.4-10.2); CREATININE, serum 1.39 mg/dL (0.72-1.25); MAGNESIUM 2.4 mg/dL (1.6-2.6); POTASSIUM 3.9 mEq/L (3.5-4.5)
[2024-07-12 05:04] LABS: LYMPHOCYTE 4 % (20.0-51.0); METAMYELOCYTE 1 % (0-0); NEUTROPHILS 91 % (42.0-75.2)
[2024-07-12 05:05] LABS: BURR CELLS 1+; HYPOCHROMIA 1+; PLATELET ESTIMATE NORMAL (NORMAL)
--- NOTE | 2024-07-12 05:07 | NUR ---
SEDATION VACATION, TITRATED MEDICATIONS DOWN, PATIENT BEGAN TO ROUSE, LOOK AROUND AND ATTEMPTED TO PULL AT LINES AND TUBES. SEDATION INCREASED BACK TO ITS PREVIOUS RATE
[2024-07-12 05:44] LABS: ARTERIAL BLD GAS O2 SATURATION 92.2 % (92-100); ARTERIAL BLD GAS TCO2 CT 23.7; ARTERIAL BLOOD GAS BASE EXCESS -1.4 (-2-2); ARTERIAL BLOOD GAS HCO3 22.6 meq/L (22-26); ARTERIAL BLOOD GAS PCO2 35.6 mmHg (35-45); ARTERIAL BLOOD GAS PO2 63.2 mmHg (80-100); ARTERIAL BLOOD GAS pH 7.42 (7.35-7.45)
[2024-07-12] MEDS ORDERED: Sertraline 50 MG TAB PO SCH (09:00)
[2024-07-12] MEDS ORDERED: Potassium Chloride 100 ML IV ONE (15:45)
--- NOTE | 2024-07-12 17:48 | NUR ---
PATIENT DID NOT HAVE A SEDATION VACATION DURING THIS SHIFT. THE PATIENT HAD SEDATION DECREASED THIS MORNING, AND ATTEMPTED TO PULL HIS ET TUBE OUT AND WOULD NOT FOLLOW COMMANDS. PATIENT WILL RESPOND TO VERBAL OR PHYSICAL STIMULI AT CURRENT SEDATION LEVEL OF 30 MCG/KG/MIN. BED IS IN LOW POSITION, CALL LIGHT IS WITHIN REACH, BED ALARMS ARE ON. .
--- NOTE | 2024-07-12 18:00 | NUR ---
THIS PATIENT IS NOW AT THEIR TUBE FEED GOAL OF 50 ML/HR WITH A 100 ML WATER FLUSH EVERY FOUR HOURS. THIS PATIENT CONTINUES TO TOLERATE THE TUBE FEEDING WITH NO SIGNS OF DISTENTION, REGURGITATION, OR VOMITING. BED IN LOW POSITION, CALL LIGHT WITHIN REACH.
--- NOTE | 2024-07-12 19:00 | NUR ---
THIS NURSE GAVE REPORT TO RICH ROSS . PATIENT IS SEDATED, BUT AROUSABLE WITH SPEECH AND WITHDRAWS FROM PAIN. TUBE FEED IS RUNNING AT 50 ML/HR WITH Q4H 100 ML FLUSHES. PROPOFOL IS RUNNING AT 15.5 ML/HR AND FENTANYL IS RUNNING AT 3.8 ML/HR. PATIENT IS CURRENTLY SUPINE WITH THE HEAD OF THE BED ANGLED AT 30 DEGREES. MEPILEX ON HEELS WAS REMOVED AND THE HEELS WERE FLOATED. CATHETER CARE PERFORMED. PUMPS ZEROED OUT AND DOCUMENTED. BED IN LOW POSITION AND CALL LIGHT WITHIN REACH.
[2024-07-13] VITALS (1294 sets, daily range): BP systolic 112–126; BP diastolic 61–72; PULSE 78–101; TEMP 97.2–98.3; O2SAT 74–100
--- NOTE | 2024-07-13 02:00 | NUR ---
PT IS LYING IN BED ON THE VENTILATOR. HE DOES OPEN HIS EYES TO VOICE AND WITHDRAWLS FROM PAIN, BUT HE DOES NOT FOLLOW COMMANDS AT THIS TIME. HE IS IN BUE RESTRAINTS. HE HAS AN OG TUBE WITH TUBE FEED AND A GARCIA CATHETER WITH SOME URINE DRAINING. HE HAS A RIGHT IJ WITH FENTANYL AND PROPOFOL INFUSING. NO FAMILY IS AT THE BEDSIDE.
[2024-07-13 04:53] LABS: MEAN CELL VOLUME 95 fl (80.0-100.0); MEAN CORPUSCULAR HEMOGLOBIN 31 pg (27-31); MEAN CORPUSCULAR HGB CONC 32 g/dl (33.0-37.0); MEAN PLATELET VOLUME 9.3 fl (7.4-10.4); PLATELET COUNT 176 K/mm3 (130-400); RED BLOOD COUNT 3.91 M/mm3 (4.20-5.60); REDCELL DISTRIBUTION WIDTH-CV 13.8 % (11.5-14.5)
--- NOTE | 2024-07-13 05:09 | NUR ---
SED VACATION, AFTER APPROX 25 MIN, THE PATIENT BECAME AGITATED AND STARTED TO PULL AT THE WIRES HE WAS ABLE TO GET A HOLD OF WITH HIS RESTRAINTS ON. HE STARTED PULLING AT HIS GOWN AND HE BECAME TACHYCARDIC. HE WAS ALSO FIGHTING THE VENTILATOR AND MOVING HIS ETT UP AND DOWN WITH HIS TONGUE, IT APPEARED LIKE HE WAS CHEWING ON THE TUBE. HIS EYES WERE OPEN, BUT HE WAS NOT FOLLOWING ANY COMMANDS, HE WOULD NOT LET GO OF HIS GOWN. RETURNED THE DRIPS TO THE PREVIOUS RATES. AFTER APPROX. 10 MINUTES THE PATIENT BEGAN TO SETTLE DOWN AGAIN.
[2024-07-13 05:23] LABS: ALBUMIN 2.1 g/dL (3.4-4.8); BILIRUBIN,TOTAL 0.4 mg/dL (0.2-1.2); CALCIUM 8.2 mg/dL (8.4-10.2); CREATININE, serum 1.44 mg/dL (0.72-1.25); MAGNESIUM 2.5 mg/dL (1.6-2.6); TOTAL PROTEIN 5.2 g/dl (6.2-8.1)
[2024-07-13 06:04] LABS: ARTERIAL BLD GAS O2 SATURATION 97.4 % (92-100); ARTERIAL BLD GAS TCO2 CT 23.3; ARTERIAL BLOOD GAS BASE EXCESS -1.8 (-2-2); ARTERIAL BLOOD GAS HCO3 22.2 meq/L (22-26); ARTERIAL BLOOD GAS PCO2 35.8 mmHg (35-45); ARTERIAL BLOOD GAS pH 7.41 (7.35-7.45)
[2024-07-13 06:36] LABS: EOSINOPHIL 1 % (0-4); LYMPHOCYTE 7 % (20.0-51.0); NEUTROPHILS 89 % (42.0-75.2); PLATELET ESTIMATE NORMAL (NORMAL)
--- NOTE | 2024-07-13 08:52 | NUR ---
PT ASSESMENT COMPLETED. PT IN BED INTTUBATED WITH VENTALTOR IN PLACE. PATIENT RESTING COMFORTABLY. PT IS EASILY ARROUSED TO VOICE. PT DOES NOT FOLLOW COMMANDS WELL BUT WILL ATTEMPT, PT IS NOTED TO BE EXECPTIONALY HARD OF HEARING. NEURO EXAM SHOWS PUPALS 2CM AND SLUGISH. PT RESPOINDS TO COMMANDS WITH DIFFICULTY.
[2024-07-13] MEDS ORDERED: Insulin Lispro (HumaLOG) SQ SCH (12:00)
--- NOTE | 2024-07-13 13:42 | NUR ---
Data: Spiritual care visit attempted during Thread Separator rounds. Per RN Patient is not alert and is on precautions. Spiritual care visit not completed. Assessment: None at this time. Plan of Care: Thread Separator will remain available as needed/requested while Patient is admitted to this hospital.
--- NOTE | 2024-07-13 17:04 | NUR ---
PT AGITATED WITHOUT SEDATION. PT COMFORTABLE ON CURRENT LEVEL OF SEDATION. VACATION NOYT WARRENTED AT THIS TIME.
--- NOTE | 2024-07-13 20:00 | NUR ---
Pt resting in bed. VSS. IV propofol and fentanyl infusing to central line without difficulty. Tube feeding infusing without difficulty. Evening medications administered. Pt repositioned and cleaned up. Pt does not appear agitated and is not fighting the ventilator. Pt able to awaken to voice but does not follow commands.
[2024-07-14] VITALS (977 sets, daily range): BP systolic 110–132; BP diastolic 53–68; PULSE 89–116; TEMP 97–99.5; O2SAT 89–100
--- NOTE | 2024-07-14 01:30 | NUR ---
Rectal tube inserted due to numerous liquid stools. No complications. Pt tolerated procedure well.
--- NOTE | 2024-07-14 04:20 | NUR ---
PT SEDATION LOWER THAN PRIOR ENCOUNTERS. PT SLIGHTLY AGITATED, RESULTING IN HIGH PIP, RR, HR and VT. RN AWARE AND IN PT ROOM RESOLVING AGITATION.
[2024-07-14 04:53] LABS: HEMOGLOBIN 11.5 g/dl (13.5-18.0); MEAN CELL VOLUME 96 fl (80.0-100.0); MEAN CORPUSCULAR HEMOGLOBIN 31 pg (27-31); MEAN CORPUSCULAR HGB CONC 32 g/dl (33.0-37.0); MEAN PLATELET VOLUME 9.4 fl (7.4-10.4); PLATELET COUNT 170 K/mm3 (130-400); RED BLOOD COUNT 3.75 M/mm3 (4.20-5.60)
[2024-07-14 04:57] LABS: HEMATOCRIT 36.1 % (42.0-52.0)
--- NOTE | 2024-07-14 05:00 | NUR ---
Pt has become increasingly agitated throughout the night. Pt has become tachycardic at times throughout the night and often breaths over the vent at 28-30 breaths per minute. An increase in sedation was warranted for increased heart rate and respiratory rate overnight. Sedation vacation not appropriate for patient at this time.
[2024-07-14 05:16] LABS: CALCIUM 7.7 mg/dL (8.4-10.2); CREATININE, serum 1.36 mg/dL (0.72-1.25); MAGNESIUM 2.5 mg/dL (1.6-2.6); POTASSIUM 4.1 mEq/L (3.5-4.5)
[2024-07-14 05:27] LABS: ARTERIAL BLD GAS O2 SATURATION 94.3 % (92-100); ARTERIAL BLD GAS TCO2 CT 23.5; ARTERIAL BLOOD GAS BASE EXCESS -0.9 (-2-2); ARTERIAL BLOOD GAS HCO3 22.5 meq/L (22-26); ARTERIAL BLOOD GAS PCO2 33.2 mmHg (35-45); ARTERIAL BLOOD GAS PO2 69.1 mmHg (80-100); ARTERIAL BLOOD GAS pH 7.45 (7.35-7.45)
[2024-07-14] MEDS ORDERED: Doxycycline Hyclate 100 MG in NS 150 ML IV SCH ×2 (06:00→18:00)
[2024-07-14 07:04] LABS: BAND 3 % (0-10); LYMPHOCYTE 4 % (20.0-51.0); NEUTROPHILS 89 % (42.0-75.2)
[2024-07-14 07:05] LABS: PLATELET ESTIMATE NORMAL (NORMAL)
--- NOTE | 2024-07-14 08:58 | NUR ---
UPPON INITIAL ASSESMENT PT NOTED TO BE DEEP SEDATED (-4 RASS) AND DIFFICULT TO ARROUNSE. SEDATION TITRATED DOWN TO OBTAIN GOAL OF RASS (-2 TO -3) WILL CONTINUE TO MONITER SEDATION LEVEL THROUGHOUT SHIFT.
[2024-07-14] MEDS ORDERED: Insulin Glargine-ygfn (Lantus) SQ ONE (09:00)
--- NOTE | 2024-07-14 09:50 | NUR ---
THIS RN NOTED THAT WHEN PHYSICAL THERAPY WENT TO WORK WITH PATIENT HEART RATE JUMPED INTO THE 160'S. RN AND RT OBTAINED AN EKG WHICH SHOWED A-FIB. PT SELF CORRECTED AND WENT BACK TO NSR. NORMAL HEAR RATE NOTED WITH PATIENT RSTING COMFORTABLY.
--- NOTE | 2024-07-14 17:02 | NUR ---
SEDATION VACATION ATTMEPTED WITH PATIENT. FENT DECREADES FROM 75 MCG/HR TO 50MCG/HR. PROPOFOL DECREASED FROM 40 MCG/KG/MIN TO 20MCG/KG/MIN ACORDING TO HERNESTO. PT DID NOT TOLLERATE DECREASE OF SEDATION AND WAS RESTLESS ON VACATION DOSING. PT WAKING UPI AND ATTEMPTING TO PULL AT LDA. PT EYES ARE OPEN AND RESPONSIVE TO STIMULI BUT DOES NOT FOLLOW ANY COMMANDS OR MAKE PURPOSFUL MOVEMENT. PT SEDATION INCREASED AGAIN AFTER VACATION. SEE TITRATION DOCUMANTATION
--- NOTE | 2024-07-14 19:00 | NUR ---
Received report from RICH Prater.
--- NOTE | 2024-07-14 20:30 | NUR ---
Patient remains on ventilator, tolerating well. Continues to receive fentanyl and propofol drips, see IV drip titrations. Vitals within normal limits. Rectal tube and ford catheter to dependent drainage. Tube feeds in progress at this time.
[2024-07-15] VITALS (769 sets, daily range): BP systolic 102–134; BP diastolic 54–67; PULSE 60–165; TEMP 98–99.6; O2SAT 57–100
[2024-07-15 05:20] LABS: ARTERIAL BLD GAS O2 SATURATION 96.8 % (92-100); ARTERIAL BLD GAS TCO2 CT 23.5; ARTERIAL BLOOD GAS BASE EXCESS -1.1 (-2-2); ARTERIAL BLOOD GAS HCO3 22.5 meq/L (22-26); ARTERIAL BLOOD GAS PCO2 33.9 mmHg (35-45); ARTERIAL BLOOD GAS pH 7.44 (7.35-7.45)
[2024-07-15 05:29] LABS: HEMOGLOBIN 11.2 g/dl (13.5-18.0); MEAN CELL VOLUME 99 fl (80.0-100.0); MEAN CORPUSCULAR HEMOGLOBIN 31 pg (27-31); MEAN CORPUSCULAR HGB CONC 31 g/dl (33.0-37.0); MEAN PLATELET VOLUME 9.3 fl (7.4-10.4); PLATELET COUNT 184 K/mm3 (130-400); RED BLOOD COUNT 3.65 M/mm3 (4.20-5.60); REDCELL DISTRIBUTION WIDTH-CV 14.1 % (11.5-14.5)
[2024-07-15 05:33] LABS: HEMATOCRIT 36.2 % (42.0-52.0)
--- NOTE | 2024-07-15 05:40 | NUR ---
Attempted to decrease patient's sedation for planned weaning trial this AM. Within 10 minutes of decreasing sedation, patient's HR noted to be 160s. Patient trying to sit up in bed and pulling at restraints. Sedation resumed at previously running levels.
[2024-07-15 05:47] LABS: CALCIUM 7.6 mg/dL (8.4-10.2); CREATININE, serum 1.22 mg/dL (0.72-1.25); MAGNESIUM 2.4 mg/dL (1.6-2.6); POTASSIUM 4.2 mEq/L (3.5-4.5)
[2024-07-15 06:07] LABS: LYMPHOCYTE 24 % (20.0-51.0); NEUTROPHILS 72 % (42.0-75.2); PLATELET ESTIMATE NORMAL (NORMAL)
[2024-07-15] MEDS ORDERED: Metoprolol Tartrate 25 MG TAB PO SCH (09:00)
[2024-07-15] MEDS ORDERED: Insulin Glargine-ygfn (Lantus) SQ ONE (09:00)
--- NOTE | 2024-07-15 09:00 | NUR ---
Patient awake with eyes open, however does not follow commands. CPAP trial not able to be initiated due to extremely elevated HR with reduction in sedation. Dr. Kim London notified.
[2024-07-15] MEDS ORDERED: Amiodarone 450 MG in D5W Excel 250 ML IV SCH ×2 (10:45→16:42)
[2024-07-15] MEDS ORDERED: Heparin 5,000 UNITS/ML 1 ML VIAL IV ONE (11:00)
[2024-07-15] MEDS ORDERED: Heparin 5,000 UNITS/ML 1 ML VIAL IV PRN (11:00)
[2024-07-15] MEDS ORDERED: Heparin/D5W 250 ML IV SCH (11:00)
--- NOTE | 2024-07-15 11:57 | NUR ---
DIPTI emailed clinical updates to Josh at [facility]. DIPTI attended clinical rounding and was informed by Dr. Mendy London that pt will need a [facility] referral. DIPTI emailed [facility] referral to Gray. Discharge Plan: [facility]
[2024-07-15 12:43] LABS: PARTIAL THROMBOPLASTIN TIME > 400.0 SECONDS (26.0-37.0)
--- NOTE | 2024-07-15 13:17 | NUR ---
DIPTI spoke with Gray at [facility] who requests to know pt's anticipated discharge date. He confirms to have beds and not need auth for pt's insurance. DIPTI called Dr. Carol Malave and inquired about pt's plan. She reports Dr. Mendy London was discussing trach/PEG placement, but sounds like he was going to wait until pt's sister is discharged from Swing Bed on Monday to have a conversation. DIPTI relayed the above message to Gray at [facility].
[2024-07-15 14:34] LABS: COLLECTION METHOD CLEAN CATCH
[2024-07-15 14:48] LABS: PH 5.5 (5.0-8.5); URINE APPEARANCE CLEAR (CLEAR/HAZY); URINE BLOOD NEGATIVE (NEGATIVE); URINE COLOR YELLOW (YELLOW); URINE GLUCOSE NEGATIVE (NEGATIVE); URINE KETONE NEGATIVE (NEGATIVE); URINE NITRATE NEGATIVE (NEGATIVE); URINE PROTEIN(semi-quant) TRACE (NEGATIVE); URINE UROBILINOGEN 0.2 E.U/dL (0.2-1.0)
[2024-07-15 15:44] LABS: CLOSTRIDIUM DIFF A/B NEG
--- NOTE | 2024-07-15 16:15 | NUR ---
Assisted with repositioning and provied a bedbath. Tolerated well. Opens eyes to verbal stimulation but does not follow other commands at this time. VS stable.
--- NOTE | 2024-07-15 16:17 | NUR ---
salvage mend worker was informed pt needs a goals of care discussion tomorrow morning with Dr. Mendy London involved. DIPTI called pt's DPOA-HC, Carolin [phone] to discuss the need for a phone meeting. Carolin did not appear to understand at first and was adamant against this reporting she will get out of Swing Bed Monday and arrive as soon as she could. DIPTI advised the critical care doctor needed to talk with her as soon as possible via phone to determine steps moving forward with pt. She was then agreeable to 9:30am and states any earlier would not work for her. DIPTI again informed her it was over the phone and the would call her to discuss. DIPTI informed Director Obdulia of the 9:30am meeting by phone.
[2024-07-15 17:07] LABS: PARTIAL THROMBOPLASTIN TIME 49.2 SECONDS (26.0-37.0)
--- NOTE | 2024-07-15 21:44 | NUR ---
PT IS RESTING IN THE BED ON THE VENTILATOR. HE SPONTANEOUSLY OPENS HIS EYES AND MOVES HIS ARMS. HE DOES NOT FOLLOW ANY COMMANDS. HE HAS A RIGHT IJ. HE HAS AN OG TUBE WITH FREE WATER AND TUBE FEEDING. HE HAS A RECTAL TUBE WITH OUTPUT. HE HAS A GARCIA CATHETER WITH ADEQUATE URINE OUTPUT. NO FAMILY AT THE BEDSIDE. HE IS ON CONTACT PRECAUTIONS FOR COVID.
[2024-07-16] VITALS (713 sets, daily range): BP systolic 106–138; BP diastolic 56–67; PULSE 58–93; TEMP 97.5–99.5; O2SAT 83–100
[2024-07-16 04:13] LABS: HEMOGLOBIN 11.4 g/dl (13.5-18.0); MEAN CELL VOLUME 97 fl (80.0-100.0); MEAN CORPUSCULAR HEMOGLOBIN 31 pg (27-31); MEAN CORPUSCULAR HGB CONC 32 g/dl (33.0-37.0); MEAN PLATELET VOLUME 9.7 fl (7.4-10.4); PLATELET COUNT 184 K/mm3 (130-400); RED BLOOD COUNT 3.73 M/mm3 (4.20-5.60)
[2024-07-16 04:43] LABS: ALBUMIN 2.1 g/dL (3.4-4.8); BILIRUBIN,TOTAL 0.3 mg/dL (0.2-1.2); CALCIUM 7.7 mg/dL (8.4-10.2); CREATININE, serum 1.23 mg/dL (0.72-1.25); POTASSIUM 4.3 mEq/L (3.5-4.5); TOTAL PROTEIN 4.8 g/dl (6.2-8.1)
[2024-07-16 05:28] LABS: BAND 8 % (0-10); EOSINOPHIL 3 % (0-4); LYMPHOCYTE 11 % (20.0-51.0); METAMYELOCYTE 3 % (0-0); NEUTROPHILS 72 % (42.0-75.2)
[2024-07-16 05:29] LABS: PLATELET ESTIMATE NORMAL (NORMAL)
--- NOTE | 2024-07-16 08:20 | NUR ---
Dr. London at bedside and plced patient on a CPAP trial after all sedation was stopped. Patient awake and able to follow simple commands. CPAP trial was stopped after approximately 20 min as patient was becoming very tachypneic. Will plan for another trial tomorrow morning per Dr. London.
--- NOTE | 2024-07-16 09:30 | NUR ---
Dr.A London talked with patient's DPOA/sister (Carolin) on phone regarding plan of care with Nellie MARIE) & this RN. Dr. London discussed hospital course, current treatments, plan of care & options for ongoing care. Discussed ventilator use with patient failing weaning trials that last few days. Trach/PEG placement with need for LTAC placement discussed. Comfort care option also presented. Carolin stated that she would not make a decision until she could see the patient. Dr. London signed off the call. She continues to be in swing bed as a patient herself & will be discharged tomorrow. Carolin will be in contact with family members today. Carolin stated that her & her nephew Joshua will be in to see patient tomorrow at 1100. Carolin stated that she will try to contact their sister in [place], but that the patient did not have good relationships with his siblings other than a sister Britta & Carolin herself. Carolin stated that she did not the patient appreciated his independence & being able to be active, so she does not think that he would want to continue on with aggressive measures. Winnie Gardner & primary RN (Pema) made aware of plan to meet with family tomorrow at 1100.
[2024-07-16] MEDS ORDERED: Amiodarone 200 MG TAB PO SCH (09:54)
--- NOTE | 2024-07-16 13:51 | NUR ---
dialysis social worker attended goals of care discussion via phone with DEBBY-TANIA, Carolin, Director Obdulia, and Dr. Mendy London. He discussed pt's current conditon, plan, and likely prognosis will failed extubation trials. DEBBY Coe reports she discharges from swing bed tomorrow and can arrive at 11am to lay eyes on pt tomorrow, along with his nephew Joshua. Carolin reports that pt "wouldn't want to live on a vent" and they likely would like him to "rest." Team will meet with Carolin tomorrow at 11am to discuss further. Dr. London reports pt would likely be planned to have a trach/peg and go to [facility] on Monday, if she decides to continue the agressive route. SW emailed updates to Felicia, Gray and Josh AGUSTIN informing them of the above. Discharge Plan: meeting tomorrow at 11am with DEBBY
--- NOTE | 2024-07-16 14:49 | NUR ---
Per family request notified the [facility] that [facility] are being requested tomorrow for the patient around 1100. Family members number was provided to the spiritism if any time changes would take place. Al parties in agreeance at this time.
--- NOTE | 2024-07-16 21:32 | NUR ---
Spoke with [facility] regarding possible transfer to comfort cares in morning. Farhan will have a chart reviewer call back. 0 Spoke with Alicia. Patient is not a candidate. Call with TOD once patient passes. Referral number [id number]
[2024-07-17] VITALS (280 sets, daily range): BP systolic 89–131; BP diastolic 40–65; PULSE 58–91; TEMP 98–98.4; O2SAT 81–99
--- NOTE | 2024-07-17 00:45 | NUR ---
PT STABLE ON VENT. REMAINS IN COVID ISOLATION. FAMILY MEETING PLANED FOR 02/14 AT 1100. HAS BEEN REQUESTED FOR LAST RIGHTS TOMORROW. PT ON PROPOFOL, FENTANYL FOR SEDATION AND PAIN. HEPARIN DRIP FOR DVT. DRIP CURRENTLY STOPPED. TO BE TURNED BACK ON T 1945 AT A RATE OF 7.5 MLS/HR. NEXT HEP XA TIME NEEDS TO BE ADJUSTED TO 0145. CURRENT LAB SET TO DRAW AT 0000.
[2024-07-17 02:09] LABS: MEAN CELL VOLUME 98 fl (80.0-100.0); MEAN CORPUSCULAR HGB CONC 31 g/dl (33.0-37.0); MEAN PLATELET VOLUME 9.8 fl (7.4-10.4); PLATELET COUNT 163 K/mm3 (130-400); RED BLOOD COUNT 3.14 M/mm3 (4.20-5.60); REDCELL DISTRIBUTION WIDTH-CV 13.9 % (11.5-14.5)
[2024-07-17 02:13] LABS: HEMATOCRIT 30.9 % (42.0-52.0); HEMOGLOBIN 9.7 g/dl (13.5-18.0); MEAN CORPUSCULAR HEMOGLOBIN 31 pg (27-31)
[2024-07-17 02:22] LABS: ALBUMIN 1.9 g/dL (3.4-4.8); BILIRUBIN,TOTAL 0.3 mg/dL (0.2-1.2); CALCIUM 7.2 mg/dL (8.4-10.2); CREATININE, serum 1.12 mg/dL (0.72-1.25); POTASSIUM 4.2 mEq/L (3.5-4.5); TOTAL PROTEIN 4.3 g/dl (6.2-8.1)
[2024-07-17 02:33] LABS: BAND 2 % (0-10); LYMPHOCYTE 13 % (20.0-51.0); METAMYELOCYTE 3 % (0-0); MYELOCYTE 5 % (0-0); NEUTROPHILS 74 % (42.0-75.2); TOXIC GRANULATION PRESENT
[2024-07-17 02:35] LABS: PLATELET ESTIMATE NORMAL (NORMAL)
--- NOTE | 2024-07-17 06:27 | NUR ---
SEDATION BEING DECREASED. PT IS SHAKING HIS HEAD NO. SBT EXPLAINED TO PATIENT. EMOTIONAL SUPPORT GIVEN. CONTINUE PLAN OF CARE.
--- NOTE | 2024-07-17 07:25 | NUR ---
REMAINS STABLE ON ROUNDS. SEDATION DECREASED FOR SBT THIS MORNING. RATES REVIEWED WITH DAY SHIFT NURSE. NO SIGN OF DISTRESS AT THIS TIME. CONTINUE WITH PLAN OF CARE.
[2024-07-17] MEDS ORDERED: Furosemide 40 MG/4 ML VIAL IV SCH (09:00)
[2024-07-17] MEDS ORDERED: ALBUMIN IV SCH (09:00)
--- NOTE | 2024-07-17 09:00 | NUR ---
HepxA came back a 0.0. Labs re-drawn to confirm.
--- NOTE | 2024-07-17 10:01 | NUR ---
PT STARTED ON A SPONTANEOUS BREATHING TRIAL AT APPROXIMATELY [address] Kim PATTON. ON PRESSURE SUPPORT OF 18 PEEP 5. RR IN MID 20'S. TOLERATING FAIRLY WELL FOR ABOUT AN HOUR THEN RR OVER 30'S RSBI INCREASED TO OVER 100. PLACED BACK ON ACVC PER CHARTED SETTINGS.
--- NOTE | 2024-07-17 11:00 | NUR ---
Family meeting with Dr. Samara London, Nellie () & this RN. Patient's sister/DPOA (Carolin), Carolin's [id number] & patient's nephew (Joshua) present. Carolin stated that she talked with Dr. Mendy London yesterday & has been able to talk with other family members regarding his condition & plan of care. She wants to proceed with comfort care. Dr. Samara London did discuss the comfort care & that the patient would also be a candidate to try the bipap after extubation, but he would continue to have the same chronic health issues. This RN explained that vent weaning trial this morning was better than previous days & Dr. Mendy London made alternative suggestion of potentially trying bipap as a middle ground if family decided to extubate but were struggling with comfort care. Carolin stated that she knows that the patient would not want to live this way & that comfort care is how the family would like to proceed. Comfort care discussed in detail to include extubation, medications & what to expect. Discussed that is tomorrow the patient is still alive then would likely proceed with hospice options with dicharge. Family liked the thought of patient going back to [facility] with hospice; Nellie will notify [facility], but also bring other hospice information/options to family. All questions answered. Will proceed with comfort care.
[2024-07-17] MEDS ORDERED: Lidocaine 4% Topical Patch TP SCH (11:19)
[2024-07-17] MEDS ORDERED: LORazepam 2 MG/ML 1 ML VIAL IV PRN (11:30)
[2024-07-17] MEDS ORDERED: Albuterol 0.083% Neb Soln 2.5 MG/3 ML UD IH PRN (11:30)
[2024-07-17] MEDS ORDERED: Ondansetron 4 MG/2 ML VIAL IV PRN (11:30)
[2024-07-17] MEDS ORDERED: Morphine Oral Concentrate 20 MG/ML UD SL PRN (11:30)
[2024-07-17] MEDS ORDERED: Morphine 4 MG/ML VIAL IV PRN (11:30)
[2024-07-17] MEDS ORDERED: Haloperidol Lactate 5 MG/ML VIAL IV PRN (11:30)
[2024-07-17] MEDS ORDERED: Carboxymethylcellulose PF Ophth 0.4 ML DROPPERETTE OP PRN (11:30)
[2024-07-17] MEDS ORDERED: Scopolamine 1 MG Delivered 3-Day PATCH TD SCH (11:30)
--- NOTE | 2024-07-17 11:30 | NUR ---
Patient extubated to comfort care per family wishes. Family at bedside after extubation. All questions and concerns addressed at this time.
--- NOTE | 2024-07-17 11:51 | NUR ---
PT EXTUBATED TO 6L/NC @1130. DR Sally PATTON AND RN AT BEDSIDE. NO COMPLICATIONS.
[2024-07-17] MEDS ORDERED: Insulin Lispro (HumaLOG) SQ SCH (12:00)
--- NOTE | 2024-07-17 12:04 | NUR ---
DIPTI attended in person goals of care meeting with pt's sister, Carolin, nephew, [id number] with Dr. Samara London and Director Obdulia. Hospice vs agressive measures discussed. Sister ultimately decided on quality of life and how this is not what pt would want and also feels like the bipap will exacerbate his anxiety further. All questions answered with the family. Pt will stay overnight and likely could discharge tomorrow to [facility], where pt has stayed for the past 7 years. DIPTI provided medicare.gov list of hospice agencies for sister to review and call DIPTI. Pt's sister mentioned they are the only family whom will visit and did discuss pt having one friend, Patrick who would call him and visit at [facility]. Family was agreeable to DIPTI calling [facility] to try to reach this friend. DIPTI informed Josh at [facility] and emailed updates. DIPTI left a message to [place] to attempt to locate pt's friend, Patrick. Discharge Plan: comfort care
--- NOTE | 2024-07-17 14:30 | NUR ---
DIPTI spoke with Josh at [facility] who cannot locate information on pt's friend, Patrick there. He suggests locating pt's flip phone and looking through there. [facility]. DIPTI informed her she will send this. DIPTI advised she should look through pt's phone for his friend's number. She reports that it does not work. DIPTI emailed referral to Renata at [facility] for home health hospice.
--- NOTE | 2024-07-17 19:14 | NUR ---
PATIENT CURRENTLY ON COMFORT CARE. FAMILY AT BEDSIDE. NO ACUTE EVENTS.
--- NOTE | 2024-07-18 | NUR ---
TOShahana 2003. [id number] Spoke with Radha at [facility]. Referal number [phone]. Okay to release patient to home. [phone] Spoke with home will call back regarding scrap picker. Family remaining at bedside until then.
--- NOTE | 2024-07-18 00:35 | NUR ---
PATIENT AT 2333 ON 07/17/24. LUNG AND HEART SOUNDS WERE ABSENT AND VERIFIED WITH MONA VILLANUEVA. PATIENT FAMILY INFORMED. SAUSAGE LINKER AND MARINA CALLED, BOTH CAME TO BEDSIDE.
--- NOTE | 2024-07-18 03:36 | NUR ---
HOME ARRIVED AT 0120 AND LEFT WITH BODY AROUND 0145. ALL BELONGINGS SENT HOME WITH PATIENT FAMILY.
--- NOTE | 2024-07-18 08:19 | NUR ---
SW informed Josh at [facility] and [facility] that pt early hours of 07/18/24.
[2024-07-19 08:11] LABS: PATHOLOGY DIFF REVIEW OK
== END 2024-07-17 11:33 | disposition expired | DRG 870 ==
LOC: COL.ER 09:34 → ICU 12:15 → COL.ER 12:15 → ICU 12:51
PROVIDERS: Family Medicine; Internal Medicine Cardiovascular Disease; Internal Medicine Pulmonary Disease; Internal Medicine Sleep Medicine; Physician Assistant; ADMIT Hospitalist
PROC: 5A1955Z Respiratory Ventilation, Greater than 96 Consecutive Hours (ICD-10-PCS; principal; 2024-07-10)
PROC: 0BH17EZ Insertion of Endotracheal Airway into Trachea, Via Natural or Artificial Opening (ICD-10-PCS; 2024-07-10)
PROC: 03HY32Z Insertion of Monitoring Device into Upper Artery, Percutaneous Approach (ICD-10-PCS; 2024-07-10)
PROC: 4A133B1 Monitoring of Arterial Pressure, Peripheral, Percutaneous Approach (ICD-10-PCS; 2024-07-10)
PROC: 4A133J1 Monitoring of Arterial Pulse, Peripheral, Percutaneous Approach (ICD-10-PCS; 2024-07-10)
PROC: 02H633Z Insertion of Infusion Device into Right Atrium, Percutaneous Approach (ICD-10-PCS; 2024-07-10)
DX: A41.89 Other specified sepsis (principal); J12.82 Pneumonia due to coronavirus disease 2019; L89.153 Pressure ulcer of sacral region, stage 3; R65.21 Severe sepsis with septic shock; U07.1 COVID-19; J96.21 Acute and chronic respiratory failure with hypoxia; Z51.5 Encounter for palliative care; Z66 Do not resuscitate; C91.10 Chronic lymphocytic leukemia of B-cell type not having achieved remission; J44.0 Chronic obstructive pulmonary disease with (acute) lower respiratory infection; J44.1 Chronic obstructive pulmonary disease with (acute) exacerbation; N17.9 Acute kidney failure, unspecified; I47.20 Ventricular tachycardia, unspecified; E87.20 Acidosis, unspecified; I13.0 Hypertensive heart and chronic kidney disease with heart failure and stage 1 through stage 4 chronic kidney disease, or unspecified chronic kidney disease; I50.20 Unspecified systolic (congestive) heart failure; E87.0 Hyperosmolality and hypernatremia; I48.92 Unspecified atrial flutter; J90 Pleural effusion, not elsewhere classified; N40.0 Benign prostatic hyperplasia without lower urinary tract symptoms; G47.33 Obstructive sleep apnea (adult) (pediatric); K21.9 Gastro-esophageal reflux disease without esophagitis; E87.6 Hypokalemia; E83.42 Hypomagnesemia; R73.9 Hyperglycemia, unspecified; F32.A Depression, unspecified; N18.30 Chronic kidney disease, stage 3 unspecified; Z20.822 Contact with and (suspected) exposure to COVID-19; I46.9 Cardiac arrest, cause unspecified; E87.8 Other disorders of electrolyte and fluid balance, not elsewhere classified; I48.91 Unspecified atrial fibrillation; R73.03 Prediabetes; I08.0 Rheumatic disorders of both mitral and aortic valves; I45.81 Long QT syndrome; I45.10 Unspecified right bundle-branch block; Z99.81 Dependence on supplemental oxygen; Z90.49 Acquired absence of other specified parts of digestive tract; Z88.6 Allergy status to analgesic agent; Z88.1 Allergy status to other antibiotic agents; Z88.5 Allergy status to narcotic agent; Z79.82 Long term (current) use of aspirin; Z79.899 Other long term (current) drug therapy; Z87.891 Personal history of nicotine dependence; Z23 Encounter for immunization
CPT/HCPCS: J0282; J0456; J0696; J1100; J1630; J1644; J1815; J1940; J2060; J2270; J2543; J2704; J3010; J3475; J3480; J7030; J7050; J7060; P9047; Q9967